=== PATIENT | female | born 1995 | race African-American/Black ===

== ENCOUNTER 2016-09-21 20:42 | Outpatient (CLI) | payer MEDICAID ==
[2016-09-21 21:23] LABS: APPEARANCE,URINE SLIGHTLY-CLOUDY; BILIRUBIN,URINE NEGATIVE (NEGATIVE); GLUCOSE, URINE NEGATIVE (NEGATIVE); KETONES,URINE NEGATIVE (NEGATIVE); LEUKOCYTE ESTERASE,URINE TRACE (NEGATIVE); NITRITE,URINE NEGATIVE (NEGATIVE); PROTEIN,URINE NEGATIVE (NEGATIVE); URINE SPECIFIC GRAVITY 1.014; UROBILINOGEN,URINE NEGATIVE mg/dL (<2.0)
[2016-09-21 21:43] LABS: URINE BARBITURATES SCREEN NEGATIVE; URINE METHADONE SCREEN NEGATIVE; URINE OPIATES LOW NEGATIVE; URINE PHENCYCLIDINE SCREEN NEGATIVE
[2016-09-21] MEDS ORDERED: HYDROXYZINE PAMOATE 50 MG CAPSULE ONE (21:47)
[2016-09-21] MEDS ORDERED: HYDROXYZINE PAMOATE 50 MG CAPSULE PO ONE (22:00)
== END 2016-09-21 22:07 | disposition home or self-care (01) ==
LOC: LC 20:42
PROVIDERS: ATTEND Obstetrics & Gynecology
DX: O47.1 False labor at or after 37 completed weeks of gestation (principal); Z3A.39 39 weeks gestation of pregnancy
CPT/HCPCS: 59025; 81005; 80307; J3490

== ENCOUNTER 2016-09-22 20:09 | Inpatient (IN) | payer MEDICAID ==
[2016-09-22 20:52] LABS: APPEARANCE,URINE SLIGHTLY-CLOUDY; BILIRUBIN,URINE NEGATIVE (NEGATIVE); GLUCOSE, URINE NEGATIVE (NEGATIVE); KETONES,URINE NEGATIVE (NEGATIVE); LEUKOCYTE ESTERASE,URINE LARGE (NEGATIVE); NITRITE,URINE NEGATIVE (NEGATIVE); PROTEIN,URINE NEGATIVE (NEGATIVE); URINE SPECIFIC GRAVITY 1.002; UROBILINOGEN,URINE NEGATIVE mg/dL (<2.0)
[2016-09-22 21:07] LABS: URINE BARBITURATES SCREEN NEGATIVE; URINE METHADONE SCREEN NEGATIVE; URINE OPIATES LOW NEGATIVE; URINE PHENCYCLIDINE SCREEN NEGATIVE
[2016-09-22] MEDS ORDERED: PENICILLIN G-K 5 MILLION UNIT VIAL ONE (23:31)
[2016-09-22] MEDS ORDERED: RINGERS SOLUTION,LACTATED 1,000 ML IV PRN (23:44)
[2016-09-22] MEDS ORDERED: PENICILLIN G POTASSIUM 5,000,000 UNIT in DEXTROSE 5%-WATER 100 ML IV ONE (23:47)
[2016-09-23] MEDS ORDERED: RINGERS SOLUTION,LACTATED 1,000 ML IV PRN (01:58)
[2016-09-23 02:26] LABS: ABSOLUTE BASOPHILS # (AUTO) 0.1 10^3/uL (0.0-0.2); ABSOLUTE EOSINOPHILS # (AUTO) 0.1 10^3/uL (0.0-0.6); ABSOLUTE LYMPHOCYTES (AUTO) 1.6 10^3/uL (0.5-4.7); ABSOLUTE MONOCYTES (AUTO) 0.7 10^3/uL (0.1-1.4); BASOPHILS % (AUTO) 0.8 % (0-2); EOSINOPHILS % (AUTO) 0.4 % (0-6); HEMATOCRIT 37.4 % (36.0-47.0); HEMOGLOBIN 11.9 g/dL (12.0-15.5); HGB HCT DIFFERENCE -1.7; LYMPHOCYTES % (AUTO) 12.8 % (13-45); MEAN CORPUSCULAR HGB CONC 31.8 g/dL (32.0-36.0); MEAN CORPUSCULAR VOLUME 72 fl (80-97); MONOCYTES % (AUTO) 5.5 % (3-13); RED BLOOD COUNT 5.18 10^6/uL (3.72-5.28); SEGMENTED NEUTROPHILS % (AUTO) 80.5 % (42-78); WHITE BLOOD COUNT 12.4 10^3/uL (4.0-10.5)
[2016-09-23] MEDS ORDERED: PENICILLIN G-K 5 MILLION UNIT VIAL IV PRN (02:39)
[2016-09-23] MEDS ORDERED: PENICILLIN G-K 5 MILLION UNIT VIAL ONE ×2 (03:54→08:00)
[2016-09-23] MEDS ORDERED: PENICILLIN G POTASSIUM 2,500,000 UNIT in DEXTROSE 5%-WATER 50 ML IV SCH (04:00)
[2016-09-23] MEDS ORDERED: OXYTOCIN/NORMAL SALINE 1,000 ML IV PRN ×2 (05:00→10:49)
[2016-09-23] MEDS ORDERED: OXYTOCIN/NORMAL SALINE 20 UNIT/1,000 ML RTUINJ ONE ×2 (05:04→09:50)
[2016-09-23] MEDS ORDERED: RINGERS SOLUTION,LACTATED 300 ML IV ONE (06:05)
[2016-09-23] MEDS ORDERED: FENTANYL/BUPIVACAINE/NS/PF 200 MCG/100 ML RTUINJ EPI ONE (06:21)
[2016-09-23] MEDS ORDERED: BUPIVACAINE HCL 0.25 % INJ/PF (2.5 MG/1 ML) 30 ML VIAL ONE (06:21)
[2016-09-23] MEDS ORDERED: EPHEDRINE SULFATE INJ 50 MG/1 ML AMPULE ONE (06:21)
--- NOTE | 2016-09-23 08:01 | L&D Flow Sheet ---
LD Flowsheet Datetime Report Generated by CPN: 09/23/2016 08:00 Datetime: 09/23/2016 07:44 NBP Sys/Lakisha/Mean (mmHg): 114 (QS system process) : 59 (QS system process) : 81 (QS system process) Pulse: 85 (QS system process) LaborFlag: Labor (QS system process) Datetime: 09/23/2016 07:31 Pitocin (milliunit): Pitocin Increased to (milliunits) @ 4 (Dora Broman, RN) Patient Position/Activity: Right Lateral; Peanut Ball (Dora Broman, RN) Datetime: 09/23/2016 07:30 Monitor Mode: Internal (Dora Broman, RN) Frequency (min): 3-4 (Dora Broman, RN) Quality: Mild/Moderate (Dora Broman, RN) Duration (sec): 90-120 (Dora Broman, RN) Pattern: Normal: <= 5 Contractions in 10 Minutes (Dora Broman, RN) Resting Tone (Palpate): Relaxed (Dora Broman, RN) Resting Tone IUP (mmHg): 20 (Dora Broman, RN) Contraction Comments: MVU = 150 (Dora Broman, RN) Monitor Mode: Internal Scalp Electrode (Dora Broman, RN) FHR Baseline Rate : 135 (Dora Broman, RN) Variability: Moderate 6-25 bpm (Dora Broman, RN) Accelerations: None (Dora Broman, RN) Decelerations: Early (Dora Broman, RN) Pitocin (milliunit): Pitocin Remains (milliunits) @ 2 (Dora Broman, RN) Datetime: 09/23/2016 07:29 NBP Sys/Lakisha/Mean (mmHg): 117 (QS system process) : 62 (QS system process) : 84 (QS system process) Pulse: 85 (QS system process) LaborFlag: Labor (QS system process) Datetime: 09/23/2016 07:20 Contraction Comments: MVU = 145 (Dora Broman, RN) Datetime: 09/23/2016 07:16 Level of Consciousness: Fully Conscious (Dora Broman, RN) DTR's/Clonus: DTRs 2+; No Clonus (Dora Broman, RN) Headache: Denies (Dora Broman, RN) Breath Sounds, Left: Clear and Equal (Dora Broman, RN) Breath Sounds, Right: Clear and Equal (Dora Broman, RN) Nausea/Vomiting: Denies (Dora Broman, RN) RUQ Epigastric Pain: Denies (Dora Broman, RN) Pitocin (milliunit): Pitocin Remains (milliunits) @ (Annotations: 2) (Dora Broman, RN) Datetime: 09/23/2016 07:15 Monitor Mode: Internal (Dora Broman, RN) Frequency (min): 3-4 (Dora Broman, RN) Quality: Mild/Moderate (Dora Broman, RN) Duration (sec): 90-120 (Dora Broman, RN) Pattern: Normal: <= 5 Contractions in 10 Minutes (Dora Broman, RN) Resting Tone (Palpate): Relaxed (Dora Broman, RN) Resting Tone IUP (mmHg): 20 (Dora Broman, RN) Monitor Mode: Internal Scalp Electrode (Dora Broman, RN) Variability: Moderate 6-25 bpm (Dora Broman, RN) Accelerations: 15X15 (Dora Broman, RN) Decelerations: Early (Dora Broman, RN) Comments: unable to determine baseline (Dora Broman, RN) Pitocin (milliunit): Pitocin Remains (milliunits) @ 2 (Dora Broman, RN) Datetime: 09/23/2016 07:14 NBP Sys/Lakisha/Mean (mmHg): 114 (QS system process) : 69 (QS system process) : 85 (QS system process) Pulse: 102 (QS system process) LaborFlag: Labor (QS system process) Datetime: 09/23/2016 07:10 Communication Comments: report to oncoming shift, care relinquished to RN Harrison and RN Dora Schroeder (Liliam Ballard RN) Datetime: 09/23/2016 07:08 Dilatation (cm): 4.0 (Liliam Ballard RN) Effacement (%): 100 (Liliam Ballard RN) Station: -1 (Liliam Ballard RN) Exam by: LOIDA Ballard (Liliam Ballard RN) Vaginal Exam Comments: unchanged (Liliam Ballard RN) I/O Interventions: Duarte Cath Inserted (Liliam Ballard RN) Datetime: 09/23/2016 07:00 Monitor Mode: Internal; Palpation (Liliam Ballard, RN) Frequency (min): 2-6 (Liliam Ballard, RN) Duration (sec): 70-90 (Liliam Nellie, RN) Resting Tone IUP (mmHg): 10 (Liliam Ballard, RN) Contraction Comments: intensity: 25-60 (Liliam Nellie, RN) Contraction Comments: qlw=[id number] (Liliam Nellie, RN) Monitor Mode: Internal Scalp Electrode (Liliam Nellie, RN) FHR Baseline Rate : 140 (Liliam Nellie, RN) Variability: Minimal - Undetectable to <=5 bpm (Liliam Sharisajan, RN) Decelerations: Variable (Liliam Sharisajan, RN) Pitocin (milliunit): Pitocin Remains (milliunits) @ (Annotations: 2) (Liliam Nellie, ) Datetime: 09/23/2016 06:57 NBP Sys/Lakisha/Mean (mmHg): 112 (QS system process) : 67 (QS system process) : 83 (QS system process) Pulse: 115 (QS system process) Respirations: 16 (Liliam Ballard RN) LaborFlag: Labor (QS system process) Datetime: 09/23/2016 06:54 NBP Sys/Lakisha/Mean (mmHg): 120 (QS system process) : 66 (QS system process) : 87 (QS system process) Pulse: 102 (QS system process) LaborFlag: Labor (QS system process) Datetime: 09/23/2016 06:50 Pain Scale: 3 (Liliam Ballard RN) Pain Presence: Intermittent (Liliam Ballard RN) Pain Type: Contraction (Liliam Ballard RN) Pain Location: Abdomen (Liliam Ballard RN) Pain Relief Measures: Epidural Given (Liliam Ballard RN) LaborFlag: Labor (QS system process) Datetime: 09/23/2016 06:49 Temperature (F): 97.8 (Liliam Ballard RN) Temperature (C): 36.6 (QS system process) LaborFlag: Labor (QS system process) Datetime: 09/23/2016 06:47 NBP Sys/Lakisha/Mean (mmHg): 115 (QS system process) : 67 (QS system process) : 85 (QS system process) Pulse: 120 (QS system process) LaborFlag: Labor (QS system process) Datetime: 09/23/2016 06:46 NBP Sys/Lakisha/Mean (mmHg): 112 (QS system process) : 66 (QS system process) : 81 (QS system process) Pulse: 129 (QS system process) Epidural Procedure Other: Pump Started (Liliam Ballard RN) LaborFlag: Labor (QS system process) Datetime: 09/23/2016 06:45 NBP Sys/Lakisha/Mean (mmHg): 128 (QS system process) : 79 (QS system process) : 96 (QS system process) Pulse: 112 (QS system process) Monitor Mode: Internal; Palpation (Liliam Ballard RN) Frequency (min): 3-5 (Liliam Ballard RN) Duration (sec): 60-90 (Liliam Ballard RN) Resting Tone IUP (mmHg): 15 (Liliam Ballard RN) Contraction Comments: intensity: 40-65 (Liliam Ballard RN) Monitor Mode: Internal Scalp Electrode (Liliam Ballard RN) FHR Baseline Rate : 135 (Liliam Ballard RN) Variability: Moderate 6-25 bpm (Liliam Ballard RN) Decelerations: Early; Variable (Liliam Ballard RN) Pitocin (milliunit): Pitocin Remains (milliunits) @ (Annotations: 2) (Liliam Ballard RN) Patient Position/Activity: Right Tilt (Liliam Ballard RN) LaborFlag: Labor (QS system process) Datetime: 09/23/2016 06:44 NBP Sys/Lakisha/Mean (mmHg): 138 (QS system process) : 80 (QS system process) : 103 (QS system process) Pulse: 134 (QS system process) Pulse: 129 (QS system process) SpO2 (%): 99 (QS system process) LaborFlag: Labor (QS system process) Datetime: 09/23/2016 06:43 NBP Sys/Lakisha/Mean (mmHg): 141 (QS system process) : 84 (QS system process) : 104 (QS system process) Pulse: 116 (QS system process) LaborFlag: Labor (QS system process) Datetime: 09/23/2016 06:42 NBP Sys/Lakisha/Mean (mmHg): 146 (QS system process) : 86 (QS system process) : 109 (QS system process) Pulse: 114 (QS system process) Epidural Procedure: Loading Dose (Liliam Kossmann, RN) LaborFlag: Labor (QS system process) Datetime: 09/23/2016 06:41 NBP Sys/Lakisha/Mean (mmHg): 143 (QS system process) : 85 (QS system process) : 106 (QS system process) Pulse: 133 (QS system process) LaborFlag: Labor (QS system process) Datetime: 09/23/2016 06:40 NBP Sys/Lakisha/Mean (mmHg): 139 (QS system process) : 85 (QS system process) : 108 (QS system process) Pulse: 101 (QS system process) Epidural Procedure: Test Dose (Liliam Ballard RN) LaborFlag: Labor (QS system process) Datetime: 09/23/2016 06:39 Pulse: 102 (QS system process) SpO2 (%): 99 (QS system process) Epidural Procedure: Cath Placed (Liliam Ballard RN) LaborFlag: Labor (QS system process) Datetime: 09/23/2016 06:34 Pulse: 104 (QS system process) SpO2 (%): 100 (QS system process) LaborFlag: Labor (QS system process) Datetime: 09/23/2016 06:30 Monitor Mode: Internal; Palpation (Liliam Ballard RN) Frequency (min): 3-5 (Liliam Ballard RN) Duration (sec): 60-90 (Liliam Ballard RN) Resting Tone IUP (mmHg): 15 (Liilam Ballard RN) Contraction Comments: uwp=024 (Liliam Ballard RN) Contraction Comments: intensity:45-75 (Liliam Ballard RN) Monitor Mode: Internal Scalp Electrode (Liliam Ballard RN) FHR Baseline Rate : 135 (Liliam Ballard RN) Accelerations: 15X15 (Liliam Ballard RN) Decelerations: Early; Variable (Liliam Ballard RN) Pitocin (milliunit): Pitocin Remains (milliunits) @ (Annotations: 2) (Liliam Ballard RN) Datetime: 09/23/2016 06:29 Pulse: 107 (QS system process) SpO2 (%): 98 (QS system process) LaborFlag: Labor (QS system process) Datetime: 09/23/2016 06:26 Procedure Type: epidural (Liliam Ballard RN) Procedure Verify: Correct Patient Identity; Correct Side and Site are Marked; Accurate Procedure Consent Form; Agreement on Procedure to be Done; Correct Patient Position (Liliam Ballard RN) Anesthesia Plans: Epidural (Liliam Ballard RN) Epidural Positioning: Sitting (Liliam Ballard RN) Anesthesia Comments: Dr. Weeks at bedside for epidural (Liliam Mccarthymunir, RN) Datetime: 09/23/2016 06:24 Pulse: 91 (QS system process) SpO2 (%): 100 (QS system process) LaborFlag: Labor (QS system process) Datetime: 09/23/2016 06:20 Anesthesia Comments: Dr. Estrella aware of epidural request (Liliam Abreusajan, RN) Datetime: 09/23/2016 06:17 IV/Blood Work: IV Infusing per Order; New IV Bag Hung; IV Bag Number @ 2 (Liliam Ballard RN) Datetime: 09/23/2016 06:15 Monitor Mode: Internal; Palpation (Liliam Ballard RN) Frequency (min): 3-6 (Liliam Ballard RN) Duration (sec): 70-100 (Liliam Ballard RN) Contraction Comments: intensity: 55-75 (Liliam Ballard RN) Monitor Mode: Internal Scalp Electrode (Liliam Ballard, LOIDA) FHR Baseline Rate : 135 (Liliam Ballard, LOIDA) Variability: Moderate 6-25 bpm (Liliam Ballard RN) Decelerations: Early; Variable (Liliam Ballard RN) Pitocin (milliunit): Pitocin Remains (milliunits) @ (Annotations: 2) (Liliam Ballard RN) Datetime: 09/23/2016 06:11 NBP Sys/Lakisha/Mean (mmHg): 127 (QS system process) : 68 (QS system process) : 91 (QS system process) Pulse: 85 (QS system process) LaborFlag: Labor (QS system process) Datetime: 09/23/2016 06:10 Contraction Comments: dxo=246 (Liliam Ballard RN) Datetime: 09/23/2016 06:01 Pain Scale: 5 (Liliam Ballard RN) Pain Presence: Intermittent (Liliam Ballard RN) Pain Type: Contraction (Liliam Ballard RN) Pain Location: Abdomen (Liliam Ballard RN) Pain Relief Measures: Epidural Given (Liliam Ballard RN) LaborFlag: Labor (QS system process) Datetime: 09/23/2016 06:00 Monitor Mode: Internal; Palpation (Liliam Abreuann, RN) Frequency (min): 3-6 (Liliam Shariann, RN) Duration (sec): 70-90 (Liliam Shariann, RN) Resting Tone (Palpate): Relaxed (Liliam Shariann, RN) Resting Tone IUP (mmHg): 10 (Liliam Shariann, RN) Contraction Comments: intensity: 50-75 (Liliam Shariann, RN) Monitor Mode: Internal Scalp Electrode ([facility], [facility]) FHR Baseline Rate : 135 (Liliam Shariann, RN) Variability: Moderate 6-25 bpm (Liliam Shariann, RN) Decelerations: Early (Liliam Shariann, RN) Pitocin (milliunit): Pitocin Remains (milliunits) @ (Annotations: 2) (Liliam Sharisajan, ) Datetime: 09/23/2016 05:57 NBP Sys/Lakisha/Mean (mmHg): 130 (QS system process) : 72 (QS system process) : 95 (QS system process) Pulse: 88 (QS system process) LaborFlag: Labor (QS system process) Datetime: 09/23/2016 05:51 Comments: new fse pad applied (Liliam Ballard RN) IV/Blood Work: IV Bolus Started; IV Bolus Given ml @ 1000 (Liliam Ballard RN) Anesthesia Comments: requested epidural, ivf bolus started (Liliam Ballard RN) Datetime: 09/23/2016 05:45 Monitor Mode: Internal; Palpation (Liliam Ballard RN) Frequency (min): 4-5 (Liliam Ballard RN) Duration (sec): 60-90 (Liliam Ballard RN) Resting Tone (Palpate): Relaxed (Liliam Ballard RN) Resting Tone IUP (mmHg): 15 (Liliam Ballard RN) Contraction Comments: intensity: 45-55 (Liliam Ballard RN) Monitor Mode: Internal Scalp Electrode (Liliam Ballard RN) FHR Baseline Rate : 135 (Liliam Ballard RN) Variability: Moderate 6-25 bpm (Liliam Ballard RN) Accelerations: 15X15 (Liliam Ballard RN) Decelerations: Early (Liliam Ballard RN) Comments: artifact present, fse lead adjusted (Liliam Ballard RN) Pitocin (milliunit): Pitocin Started (milliunits) @; Pitocin 20 Units in 1000ml NS (Annotations: 2 ) (Liliam Ballard, RN) Datetime: 09/23/2016 05:42 Patient Position/Activity: Right Lateral; Semi-Fowlers (Nalini Burris, RN) Datetime: 09/23/2016 05:41 NBP Sys/Lakisha/Mean (mmHg): 140 (QS system process) : 83 (QS system process) : 104 (QS system process) Pulse: 93 (QS system process) LaborFlag: Labor (QS system process) Datetime: 09/23/2016 05:40 Contraction Comments: mvu:110 (Liliam Sharimunir, RN) Datetime: 09/23/2016 05:30 Monitor Mode: Internal; Palpation (Liliam Sharismann, RN) Frequency (min): 3-5 (Liliam Sharismann, RN) Duration (sec): 60-90 (Liliam Kossmann, RN) Resting Tone (Palpate): Relaxed (Liliam Kossmann, RN) Resting Tone IUP (mmHg): 15 (Liliam Kossmann, RN) Monitor Mode: External US (Liliam Kossmann, RN) FHR Baseline Rate : 135 (Liliam Kossmann, RN) Variability: Moderate 6-25 bpm (Liliam Kossmann, RN) Accelerations: 15X15 (Liliam Kossmann, RN) Decelerations: Early (Liliam Kossmann, RN) Datetime: 09/23/2016 05:26 NBP Sys/Lakisha/Mean (mmHg): 137 (QS system process) : 90 (QS system process) : 106 (QS system process) Pulse: 98 (QS system process) LaborFlag: Labor (QS system process) Datetime: 09/23/2016 05:20 Contraction Comments: mvu: 80 (Liliam Ballard RN) Datetime: 09/23/2016 05:15 Monitor Mode: Internal; Palpation (Liliam Ballard RN) Frequency (min): 2-5 (Liliam Ballard, LOIDA) Duration (sec): 50-90 (Liliam Ballard, RN) Resting Tone IUP (mmHg): 15 (Liliam Ballard, RN) Contraction Comments: intensity: 25-50 (Liliam Ballard, LOIDA) Monitor Mode: Internal Scalp Electrode (Liliam Ballard RN) FHR Baseline Rate : 135 (Liliam Ballard, RN) Variability: Moderate 6-25 bpm (Liliam Ballard, RN) Accelerations: 15X15 (Liliam Ballard, RN) Decelerations: None (Liliam Ballard, RN) Datetime: 09/23/2016 05:12 NBP Sys/Lakisha/Mean (mmHg): 138 (QS system process) : 84 (QS system process) : 105 (QS system process) Pulse: 97 (QS system process) LaborFlag: Labor (QS system process) Datetime: 09/23/2016 05:00 Monitor Mode: Internal; Palpation (Liliam Ballard RN) Frequency (min): 4-5 (Liliam Ballard RN) Duration (sec): 60-90 (Liliam Ballard, RN) Resting Tone IUP (mmHg): 15 (Liliam Ballard, RN) Contraction Comments: intensity:35-50; mvu: 80 (Liliam Ballard, RN) Monitor Mode: Internal Scalp Electrode (Liliam Ballard RN) FHR Baseline Rate : 150 (Liliam Ballard, RN) Variability: Moderate 6-25 bpm (Liliam Ballard, RN) Accelerations: 15X15 (Liliam Ballard, RN) Decelerations: Early; Variable (Lilima Ballard, RN) Datetime: 09/23/2016 04:56 NBP Sys/Lakisha/Mean (mmHg): 139 (QS system process) : 86 (QS system process) : 107 (QS system process) Pulse: 94 (QS system process) LaborFlag: Labor (QS system process) Datetime: 09/23/2016 04:45 Monitor Mode: Internal; Palpation (Liliam Ballard RN) Frequency (min): 5-6 (Liliam Ballard RN) Duration (sec): 60-90 (Liliam Ballard RN) Resting Tone (Palpate): Relaxed (Liliam Ballard RN) Resting Tone IUP (mmHg): 15 (Liliam Ballard RN) Contraction Comments: intensity:45-50 (Liliam Ballard RN) Monitor Mode: External US (Liliam Ballard RN) FHR Baseline Rate : 140 (Liliam Ballard RN) Variability: Moderate 6-25 bpm (Liliam Kossmann, RN) Accelerations: 10X10 (Liliam Kossmann, RN) Decelerations: Early; Variable (Liliam Sharismann, RN) Datetime: 09/23/2016 04:41 NBP Sys/Lakisha/Mean (mmHg): 138 (QS system process) : 79 (QS system process) : 102 (QS system process) Pulse: 100 (QS system process) LaborFlag: Labor (QS system process) Datetime: 09/23/2016 04:40 Contraction Comments: mvu=80 (Liliam Sharismann, RN) Datetime: 09/23/2016 04:39 Patient Position/Activity: High Fowlers (Liliam Sharismann, RN) Datetime: 09/23/2016 04:30 Monitor Mode: Internal; Palpation (Liliam Kossmann, RN) Frequency (min): 5-7 (Liliam Kossmann, RN) Duration (sec): 50-110 (Liliam Kossmann, RN) Resting Tone IUP (mmHg): 15 (Liliam Kossmann, RN) Contraction Comments: intensity: 45-60 (Liliam Kossmann, RN) Monitor Mode: Internal Scalp Electrode (Liliam Kossmann, RN) FHR Baseline Rate : 140 (Liliam Kossmann, RN) Variability: Moderate 6-25 bpm (Liliam Kossmann, RN) Accelerations: 15X15 (Liliam Kossmann, RN) Decelerations: Variable (Liliam Kossmann, RN) Datetime: 09/23/2016 04:27 NBP Sys/Lakisha/Mean (mmHg): 137 (QS system process) : 85 (QS system process) : 106 (QS system process) Pulse: 105 (QS system process) Respirations: 16 (Liliam Ballard RN) Temperature (F): 97.8 (Liliam Ballard RN) Temperature (C): 36.6 (QS system process) Temperature Route: Oral (Liliam Ballard RN) Pain Scale: 5 (Liliam Ballard RN) Pain Presence: Intermittent (Liliam Ballard RN) Pain Type: Contraction (Liliam Ballard RN) Pain Location: Abdomen (Liliam Ballard RN) Pain Relief Measures: Comfort Measures (Liliam Ballard RN) Pain Coping: Talking Through Contractions; Breathing Through Contractions; Declines Medication or Epidural (Liliam Ballard RN) LaborFlag: Labor (QS system process) Datetime: 09/23/2016 04:19 Monitor Interventions for UA: IUPC Inserted (Liliam Ballard RN) Datetime: 09/23/2016 04:17 Monitor Interventions for FHR: FSE Applied (Liliam Ballard RN) Dilatation (cm): 4.0 (Liliam Ballard RN) Effacement (%): 100 (Liliam Ballard RN) Station: -1 (Liliam Ballard RN) Membrane Status: Ruptured (Liliam Ballard RN) Membranes Ruptured Date/Time: 09/23/2016 04:17 (Liliam Ballard RN) Membranes Rupture Method: Artificial (Liliam Ballard RN) Amniotic Fluid Color: Clear (Lilima Ballard RN) Amniotic Fluid Amount: Scant (Liliam Ballard RN) Amniotic Fluid Odor: Normal (Liliam Ballard RN) Vaginal Bleeding: Normal Show (Liliam Ballard RN) Vaginal Exam Comments: prominent pubic arch (Liliam Ballard RN) Dilatation (cm): 3-4 cms (Liliam Ballard RN) Effacement: >80_ effaced (Liliam Ballard RN) Station: minus 1 to 0 (Liliam Ballard RN) Consistency: Soft (Liliam Ballard RN) Position: Midposition (Liliam Ballard RN) Total Medina's Score: 10 (QS system process) : 9-14 = Usually no failure for induction (QS system process) Datetime: 09/23/2016 04:13 Communication Comments: Dr. Ljuan at bedside, discussing POC with patient. Plans to perform AROM, IUPC, and FSE. (Liliam Ballard RN) Datetime: 09/23/2016 04:11 NBP Sys/Lakisha/Mean (mmHg): 121 (QS system process) : 67 (QS system process) : 88 (QS system process) Pulse: 101 (QS system process) LaborFlag: Labor (QS system process) Datetime: 09/23/2016 04:02 Communication Comments: DrSana Lujan aware of decelerations. MD in route for FSE placement. (Liliam Ballard, RN) Datetime: 09/23/2016 04:01 Monitor Mode: External; Palpation (Liliam Abreuann, RN) Frequency (min): irregular with uterine irritability (Liliam Kossmann, RN) Quality: Mild (Liliam Sharismann, RN) Duration (sec): 30-50 (Liliam Sharismann, RN) Resting Tone (Palpate): Relaxed (Liliam Mccarthysmann, RN) Monitor Mode: External US (Liliam Ballard, RN) FHR Baseline Rate : 140 (Liliam Ballard, RN) Variability: Moderate 6-25 bpm (Liliam Sharismann, RN) Accelerations: 15X15 (Liliam Sharismann, RN) Decelerations: Late; Variable (Liliam Kossmann, RN) Datetime: 09/23/2016 03:58 Antibiotics: Penicillin IV (Units) @ (Annotations: 2.5 million units ) (Liliam Abreusajan, RN) Datetime: 09/23/2016 03:56 NBP Sys/Lakisha/Mean (mmHg): 116 (QS system process) : 63 (QS system process) : 84 (QS system process) Pulse: 90 (QS system process) LaborFlag: Labor (QS system process) Datetime: 09/23/2016 03:53 Monitor Interventions for UA: [place] Adjusted (Liliam Ballard RN) Monitor Interventions for FHR: Ultrasound Adjusted (Liliam Ballard RN) Patient Position/Activity: Right Lateral (Liliam Ballard RN) Datetime: 09/23/2016 03:41 NBP Sys/Lakisha/Mean (mmHg): 128 (QS system process) : 74 (QS system process) : 93 (QS system process) Pulse: 85 (QS system process) LaborFlag: Labor (QS system process) Datetime: 09/23/2016 03:30 Monitor Mode: External; Palpation (Liliam Kossmann, RN) Frequency (min): uterine irritability (Liliam Kossmann, RN) Resting Tone (Palpate): Relaxed (Liliam Kossmann, RN) Monitor Mode: External US (Liliam Kossmann, RN) FHR Baseline Rate : 135 (Liliam Kossmann, RN) Variability: Moderate 6-25 bpm (Liliam Kossmann, RN) Accelerations: 15X15 (Liliam Kossmann, RN) Decelerations: Variable; Prolonged (Liliam Kossmann, RN) Datetime: 09/23/2016 03:26 NBP Sys/Lakisha/Mean (mmHg): 130 (QS system process) : 73 (QS system process) : 94 (QS system process) Pulse: 101 (QS system process) Respirations: 18 (Liliam Kossmann, RN) LaborFlag: Labor (QS system process) Datetime: 09/23/2016 03:25 Monitor Interventions for UA: Point [place] Adjusted (Liliamkavya Ballard, RN) Resting Tone (Palpate): Relaxed (Liliamkavya Ballard, RN) Monitor Interventions for FHR: Ultrasound Adjusted (Liliam Ballard, RN) Datetime: 09/23/2016 03:17 I/O Interventions: Up to BR (Liliam Ballard, RN) Datetime: 09/23/2016 03:11 NBP Sys/Laiksha/Mean (mmHg): 123 (QS system process) : 85 (QS system process) : 96 (QS system process) Pulse: 98 (QS system process) LaborFlag: Labor (QS system process) Datetime: 09/23/2016 03:01 Monitor Mode: External; Palpation (Liliam Sharismann, RN) Frequency (min): uterine irritability (Liliam Kossmann, RN) Quality: Mild (Liliam Kossmann, RN) Resting Tone (Palpate): Relaxed (Liliam Kossmann, RN) Monitor Mode: External US (Liliam Kossmann, RN) FHR Baseline Rate : 135 (Liliam Kossmann, RN) Variability: Moderate 6-25 bpm (Liliam Kossmann, RN) Accelerations: 15X15 (Liliam Kossmann, RN) Decelerations: Variable (Liliam Kossmann, RN) Datetime: 09/23/2016 02:57 Patient Position/Activity: Left Lateral (Liliam Sharismann, RN) Patient Care Comments: patient found to be flat on her back and had removed the hip roll. explained importance of roll again (Liliam Sharismann, RN) Datetime: 09/23/2016 02:56 NBP Sys/Lakisha/Mean (mmHg): 119 (QS system process) : 74 (QS system process) : 92 (QS system process) Pulse: 101 (QS system process) LaborFlag: Labor (QS system process) Datetime: 09/23/2016 02:49 Monitor Interventions for UA: [place] Adjusted (Liliam Kossmann, RN) Monitor Interventions for FHR: Ultrasound Adjusted (Liliam Kossmann, RN) Datetime: 09/23/2016 02:42 Patient Position/Activity: Right Lateral (Liliam Kossmann, RN) Datetime: 09/23/2016 02:41 NB Sys/Lakisha/Mean (mmHg): 113 (QS system process) : 68 (QS system process) : 86 (QS system process) Pulse: 97 (QS system process) LaborFlag: Labor (QS system process) Datetime: 09/23/2016 02:35 Instructional Method: Verbal; Patient Instructed; Family/Support Person Instructed; Verbalized Understanding (Liliam Ballard RN) Plan of Care: Plan of Care Discussed; Vaginal Delivery; Labor (Liliam Ballard RN) Unit Routine: [place] to Room; Call Arndt; Bed; Infant Security; Consents Signed; Handwashing; Monitoring; Medications (Liliam Ballard RN) Labor/Induction: Labor Stages; Artificial Rupture of Membranes; Interventions (Liliam Ballard RN) Pain Management: IV Narcotics; PRN Medications; Pain Scale/Goals; Comfort Measures (Liliam Ballard RN) Medications: Antibiotics (Liliam Ballard RN) Datetime: 09/23/2016 02:31 Procedures: new peripad applied, patient aware to notify rn if bleeding persists (Liliam Kossmann, RN) Datetime: 09/23/2016 02:30 Monitor Mode: External; Palpation (Liliam Sharismann, RN) Frequency (min): uterine irritability (Liliam Kossmann, RN) Resting Tone (Palpate): Relaxed (Liliam Kossmann, RN) Monitor Mode: External US (Liliam Kossmann, RN) FHR Baseline Rate : 135 (Liliam Kossmann, RN) Variability: Moderate 6-25 bpm (Liliam Kossmann, RN) Accelerations: 15X15 (Liliam Kossmann, RN) Decelerations: None (Liliam Kossmann, RN) Datetime: 09/23/2016 02:27 NBP Sys/Lakisha/Mean (mmHg): 123 (QS system process) : 82 (QS system process) : 98 (QS system process) Pulse: 98 (QS system process) Respirations: 16 (Liliam Ballard RN) Temperature (F): 98.0 (Liliam Ballard RN) Temperature (C): 36.7 (QS system process) Temperature Route: Oral (Liliam Ballard RN) Pain Scale: 5 (Liliam Ballard RN) Pain Presence: Intermittent (Liliam Ballard RN) Pain Type: Contraction (Liliam Ballard RN) Pain Location: Abdomen; Back (Liliam Ballard RN) Pain Relief Measures: Comfort Measures (Annotations: refused iv pain meds) (Liliam Ballard RN) LaborFlag: Labor (QS system process) Datetime: 09/23/2016 02:15 Monitor Mode: External; Palpation (Liliam Ballard RN) Frequency (min): irregular (Liliam Ballard RN) Quality: Mild (Liliam Ballard RN) Duration (sec): 30-50 (Liliam Ballard RN) Resting Tone (Palpate): Relaxed (Liliam Ballard RN) Monitor Mode: External US (Liliam Ballard RN) FHR Baseline Rate : 140 (Liliam Ballard RN) Variability: Moderate 6-25 bpm (Liliam Ballard RN) Accelerations: 15X15 (Liliam Ballard RN) Decelerations: None (Liliam Ballard RN) Datetime: 09/23/2016 02:02 IV/Blood Work: IV Started (Jacqui Sr RN) Patient Care Comments: 18 G Left hand (Jacqui Sr RN) Datetime: 09/23/2016 02:00 Monitor Mode: External; Palpation (Liliam Ballard RN) Frequency (min): 4-6 (Liliam Ballard RN) Quality: Mild (Liliam Ballard RN) Duration (sec): 50-60 (Liliam Ballard RN) Resting Tone (Palpate): Relaxed (Liliam Ballard RN) Monitor Mode: External US (Liliam Ballard RN) FHR Baseline Rate : 140 (Liliam Ballard RN) Variability: Moderate 6-25 bpm (Liliam Ballard RN) Accelerations: 15X15 (Liliam Ballard RN) Decelerations: None (Liliam Ballard RN) Level of Consciousness: Fully Conscious (Liliam Ballard RN) DTR's/Clonus: DTRs 2+; No Clonus (Liliam Ballard RN) Headache: Denies (Liliam Ballard, RN) Breath Sounds, Left: Clear and Equal (Liliam Ballard, RN) Breath Sounds, Right: Clear and Equal (Liliam Ballard, RN) Nausea/Vomiting: Denies (Liliam Ballard, RN) RUQ Epigastric Pain: Denies (Liliam Ballard, RN) Datetime: 09/23/2016 01:56 NBP Sys/Lakisha/Mean (mmHg): 128 (QS system process) : 84 (QS system process) : 103 (QS system process) Pulse: 106 (QS system process) LaborFlag: Labor (QS system process) Datetime: 09/23/2016 01:40 Procedures: peripad approximately 1/4 saturated with dark red blood, bright red blood noted on glove when sve was performed previously (Liliam Ballard RN) Datetime: 09/23/2016 01:39 Dilatation (cm): 3.5 (Jeni Jin RN) Effacement (%): 80 (Jeni Jin RN) Station: -1 (Jeni Jin RN) Exam by: Robert Jin RN (Jeni Jin RN) Vaginal Exam Comments: bloody show noted after SVE (Jeni Jin RN) Datetime: 09/23/2016 00:30 Pain Scale: 5 (Liliam Ballard RN) Pain Presence: Intermittent (Liliam Ballard RN) Pain Type: Contraction (Liliam Ballard RN) Pain Location: Abdomen (Liliam Ballard RN) Pain Relief Measures: Comfort Measures (Liliam Ballard RN) Pain Coping: Talking Through Contractions; Breathing Through Contractions; Declines Medication or Epidural (Liliam Ballard RN) Patient Position/Activity: Walking (Annotations: patient sent ambulating for a hour) (Liliam Ballard RN) LaborFlag: Labor (QS system process) Datetime: 09/23/2016 00:19 NBP Sys/Lakisha/Mean (mmHg): 128 (QS system process) : 85 (QS system process) : 100 (QS system process) Pulse: 98 (QS system process) LaborFlag: Labor (QS system process) Datetime: 09/23/2016 00:05 NBP Sys/Lakisha/Mean (mmHg): 122 (QS system process) : 71 (QS system process) : 91 (QS system process) Pulse: 87 (QS system process) LaborFlag: Labor (QS system process) Datetime: 09/23/2016 00:01 Monitor Mode: External; Palpation (Liliam Ballard RN) Frequency (min): 4-7 (Liliam Kossmann, RN) Quality: Mild (Liliam Ballard, RN) Duration (sec): 70-120 (Liliam Ballard, RN) Resting Tone (Palpate): Relaxed (Liliam Ballard, RN) Monitor Mode: External US (Liliam Ballard, RN) FHR Baseline Rate : 140 (Liliam Ballard, RN) Variability: Moderate 6-25 bpm (Liliam Ballard, RN) Accelerations: 15X15 (Liliam Ballard, RN) Decelerations: Variable (Liliam Sharismann, RN) Datetime: 09/22/2016 23:50 NBP Sys/Lakisha/Mean (mmHg): 127 (QS system process) : 72 (QS system process) : 93 (QS system process) Pulse: 111 (QS system process) LaborFlag: Labor (QS system process) Datetime: 09/22/2016 23:48 Antibiotics: Start Antibiotics; Penicillin IV (Units) @ (Annotations: [id number]) (Liliam Ballard, RN) Datetime: 09/22/2016 23:35 NBP Sys/Lakisha/Mean (mmHg): 131 (QS system process) : 78 (QS system process) : 97 (QS system process) Pulse: 93 (QS system process) LaborFlag: Labor (QS system process) Datetime: 09/22/2016 23:30 Monitor Mode: External; Palpation (Liliam Ballard, RN) Frequency (min): 3-8 (Liliam Ballard, RN) Quality: Mild (Liliam Ballard, RN) Duration (sec): 50-110 (Liliam Ballard, RN) Resting Tone (Palpate): Relaxed (Liliam Ballard, RN) Monitor Mode: External US (Liliam Ballard, RN) FHR Baseline Rate : 140 (Liliam Ballard, RN) Variability: Moderate 6-25 bpm (Liliam Ballard, RN) Accelerations: 15X15 (Liliam Ballard, RN) Decelerations: None (Liliam Ballard, RN) Datetime: 09/22/2016 23:20 NBP Sys/Lakisha/Mean (mmHg): 130 (QS system process) : 76 (QS system process) : 96 (QS system process) Pulse: 91 (QS system process) LaborFlag: Labor (QS system process) Datetime: 09/22/2016 23:10 Communication Comments: discussed poc with dr. neilsen. plan to give pcn and then ambulate and recheck in two hours (Liliam Ballard, RN) Datetime: 09/22/2016 23:05 Procedures: peripad 1/4 saturated with reddish purple blood, but blood on glove was bright red (Liliam Ballard RN) Datetime: 09/22/2016 23:03 Dilatation (cm): 3.5 (Liliam Ballard RN) Effacement (%): 80 (Liliam Ballard RN) Station: -1 (Liliam Ballard RN) Exam by: LOIDA Ballard (Liliam Ballard RN) Vaginal Exam Comments: continuing to have bloody show noted on pad and glove during sve (Liliam Ballard RN) Patient Care Comments: arrived back on unit from walking (Liliam Ballard RN) Datetime: 09/22/2016 21:56 Patient Position/Activity: Walking (Liliam Ballard RN) Datetime: 09/22/2016 21:55 Comments: sitting in high fowlers to remove monitors (Liliam Ballard RN) Communication Comments: Discussed POC. Patient to be allowed to ambulate for a hour and reevaluate (Liliam Ballard, LOIDA) Datetime: 09/22/2016 21:50 Dilatation (cm): 3.5 (Liliam Ballard, LOIDA) Effacement (%): 80 (Liliam Ballard, RN) Station: -1 (Liliam Ballard, LOIDA) Exam by: LOIDA Nellie (Liliam Ballard, LOIDA) Datetime: 09/22/2016 21:36 I/O Interventions: Up to BR (Liliam Ballard, RN) Datetime: 09/22/2016 21:30 Frequency (min): irregular (Liliam Bradyann, RN) Duration (sec): 40-100 (Liliam Ballard, RN) Monitor Mode: External US (Liliam Ballard, RN) FHR Baseline Rate : 140 (Liliam Bradyann, RN) Variability: Moderate 6-25 bpm (Liliam Bradyann, RN) Accelerations: 15X15 (Liliam Bradyann, RN) Decelerations: None (Liliam Sharismann, RN) Datetime: 09/22/2016 21:28 NBP Sys/Lakisha/Mean (mmHg): 119 (QS system process) : 70 (QS system process) : 90 (QS system process) Pulse: 87 (QS system process) LaborFlag: Labor (QS system process) Datetime: 09/22/2016 21:01 Monitor Mode: External; Palpation (Liliam Bradyann, RN) Frequency (min): irregular (Liliam Sharismann, RN) Quality: Mild (Liliam Kossmann, RN) Duration (sec): 50-80 (Liliam Kossmann, RN) Resting Tone (Palpate): Relaxed (Liliam Sharismann, RN) Monitor Mode: External US (Liliam Sharismann, RN) FHR Baseline Rate : 140 (Liliam Sharismann, RN) Variability: Moderate 6-25 bpm (Liliam Kossmann, RN) Accelerations: 15X15 (Liliam Sharismann, RN) Decelerations: None (Liliam Kossmann, RN) Datetime: 09/22/2016 20:59 NBP Sys/Lakisha/Mean (mmHg): 128 (QS system process) : 82 (QS system process) : 99 (QS system process) Pulse: 90 (QS system process) LaborFlag: Labor (QS system process) Datetime: 09/22/2016 20:47 Frequency (min): 5-10min (Liliam Ballard RN) Pain Scale: 5 (Liliam Ballard RN) Pain Presence: Intermittent (Liliam Ballard RN) Pain Type: Contraction (Liliam Ballard RN) Pain Location: Abdomen (Liliam Ballard RN) Pain Coping: Talking Through Contractions; Breathing Through Contractions (Liliam Ballard RN) Dilatation (cm): 3.5 (Liliam Ballard RN) Effacement (%): 80 (Liliam Ballard RN) Station: -1 (Liliam Ballard RN) Exam by: LOIDA Ballard (Liliam Ballard RN) Vaginal Bleeding: Normal Show (Liliam Ballard RN) Vaginal Exam Comments: patient has a prominent arch, difficult to examine (Liliam Ballard RN) Level of Consciousness: Fully Conscious (Liliam Ballard RN) DTR's/Clonus: DTRs 2+; No Clonus (Liliam Ballard RN) Headache: Denies (Liliam Ballard RN) Breath Sounds, Left: Clear and Equal (Liliam Ballard RN) Breath Sounds, Right: Clear and Equal (Liliam Ballard RN) Nausea/Vomiting: Denies (Liliam Ballard RN) RUQ Epigastric Pain: Denies (Liliam Ballard RN) LaborFlag: Labor (QS system process) Datetime: 09/22/2016 20:28 NBP Sys/Lakisha/Mean (mmHg): 125 (QS system process) : 79 (QS system process) : 96 (QS system process) Pulse: 110 (QS system process) LaborFlag: Labor (QS system process)
[2016-09-23] MEDS ORDERED: MEASLES,MUMPS&RUBELLA VACC/PF 0.5 ML VIAL SUBCUT PRN (10:49)
[2016-09-23] MEDS ORDERED: PROMETHAZINE HCL 25 MG TABLET PO PRN (10:49)
[2016-09-23] MEDS ORDERED: GLYCERIN/WITCH HAZEL LEAF 1 EACH MED..PAD TP PRN (10:49)
[2016-09-23] MEDS ORDERED: DIBUCAINE 1% OINTMENT 28 GM TP PRN (10:49)
[2016-09-23] MEDS ORDERED: PSEUDOEPHEDRINE HCL 30 MG TABLET PO PRN (10:49)
[2016-09-23] MEDS ORDERED: ACETAMINOPHEN 650 MG SUPP.RECT PR PRN (10:49)
[2016-09-23] MEDS ORDERED: PROMETHAZINE HCL 25 MG SUPP.RECT PR PRN (10:49)
[2016-09-23] MEDS ORDERED: BENZOCAINE/MENTHOL AEROSOL SPRAY 56 ML TOP PRN (10:49)
[2016-09-23] MEDS ORDERED: DIPHENHYDRAMINE HCL 25 MG CAPSULE PO PRN (10:49)
[2016-09-23] MEDS ORDERED: NA PHOS,M-B/NA PHOS,DI-BA (ADULT) 133 ML ENEMA PR PRN (10:49)
[2016-09-23] MEDS ORDERED: DIPH/PERTUSS(ACELL)/TETANUS VAC/PF 0.5 ML SYR (>=10YO) IM PRN (10:49)
[2016-09-23] MEDS ORDERED: ACETAMINOPHEN WITH CODEINE #3 TABLET PO PRN ×2 (10:49)
[2016-09-23] MEDS ORDERED: PROMETHAZINE HCL INJ 25 MG/1 ML VIAL IV PRN (10:49)
[2016-09-23] MEDS ORDERED: MAGNESIUM HYDROXIDE SUSP 30 ML UDCUP PO PRN (10:49)
[2016-09-23] MEDS ORDERED: IBUPROFEN 800 MG TABLET ONE (11:10)
--- NOTE | 2016-09-23 11:43 | Delivery Summary ---
Del Sum A-C Datetime Report Generated by CPN: 09/23/2016 11:42 ADMISSION DATA Chief Complaint: Uterine Contractions Admission Impression: Term, Intrauterine Admit Provider Comments: IUPC and fse placed to monitor more closely. GBS prophylaxis augment with pit...discussed possiblity of need for if arrest of labor or nonreassuring fhts DELIVERY PERSONNEL Delivery Doctor:: Ludmila Hernandez CNM Nurse Collar Closer Lockstitch Certified:: Dian Hernandez CNM Labor and Delivery Nurse:: Benita Harrison, motor rebuilder Nurse:: CRISTAL Faulkner Nursery Nurse:: Naomi French Rn Ems Educator/DEGREASING SOLUTION RECLAIMER: Fatou Oswald CNA II Ems Educator/DEGREASING SOLUTION RECLAIMER: Franci Sidhu CST MATERNAL INFORMATION Delivery Anesthesia: Epidural Medications After Delivery: Pitocin Bolus-Please Comment Meds After Delivery Comment: Pitocin 20 units in 1000 ml nss open for bolus Estimated Blood Loss (ml): 200 Maternal Complications: None Provider Comments: Pt. progressed to c/c/0 with decels and bradicardia. Positions changes, pitocin off and oxygen mask on. Dr. Ledesma in unit and kiwi attempted by Dr. Ledesma with 3 pop offs. FHT back to 120s-130s and + accels. Pitocin restarted and epidural turned off, patient continued pushing and after position changes and much coaching went on to deliver a viable baby girl through a loose nuchal cord, particulate meconium noted at delivery. Spontaneous respiratory effort and cry at delivery, baby placed on maternal abdomen and cord allowed to stop pulsating then clamped x2 and cut by maternal grandmother (3vc noted). Cord blood obtained for storage. Placenta delivered spontaneously intact and sent for eval. Vaginal and perineal inspection revealed laceration as stated above. Large amount of edema noted, in and out cath placed and _100ml of urine obtained. Baby and mother in room skin to skin bonding. LABOR SUMMARY EDC: 09/27/2016 00:00 No. Babies in Womb: 1 Attempted: No Labor Anesthesia: Epidural LABOR INFORMATION Reason for Induction: Not Applicable Onset of Labor: 09/23/2016 04:30 Complete Dilatation: 09/23/2016 08:33 Oxytocin: Augmentation Group B Beta Strep: positive Antibiotics # of Doses: 3 Antibiotics Time of Last Dose: 0808 Name of Antibiotic Given: Penicillin Steroids Given: None Reason Steroids Not Administered: Not Applicable MEMBRANES Membranes Rupture Method: Artificial Rupture of Membranes: 09/23/2016 04:17 Length of Rupture (hr): 5.80 Amniotic Fluid Color: Clear Amniotic Fluid Amount: Scant Amniotic Fluid Odor: Normal STAGES OF LABOR Stage 1 hr: 4 Stage 1 min: 3 Stage 2 hr: 1 Stage 2 min: 32 Stage 3 hr: 0 Stage 3 min: 5 Total Time in Labor hr: 5 Total Time in Labor min: 40 VAGINAL DELIVERY Episiotomy: None Laceration Extension: First Degree Laceration Type: Vaginal Other Laceration: bilateral vaginal wall Laceration Repair: Yes Laceration Repair Note: Vaginal wall lacerations bilaterally repaired with 2-0 chromic in the usual fashion. Poor tissue integrity with moderate amount of edema. Hemostasis achieved. Sponge Count Correct: N/A CSECTION DELIVERY Primary Indication: N/A Secondary Indication: N/A CSection Incidence: N/A Labor: N/A Elective: N/A CSection Incision: N/A BABY A INFORMATION Infant Delivery Date/Time: 09/23/2016 10:05 Method of Delivery: Vaginal Born in Route : No : N/A Forceps: N/A Vacuum Extraction: Failed Shoulder Dystocia : No PRESENTATION/POSITION BABY A Presentation: Cephalic Cephalic Presentation: Vertex Vertex Position: Right Occipital Anterior Breech Presentation: N/A PLACENTA INFORMATION BABY A Placenta Delivery Time : 09/23/2016 10:10 Placenta Method of Delivery: Spontaneous Placenta Status: Delivered SCORES BABY A Heart Rate 1 min: >100 bpm Resp Effort 1 min: Good Cry Reflex Irritability 1 min: Cough or Sneeze or Pulls Away Muscle Tone 1 min: Active Motion Color 1 min: Blue/Pale Resuscitation Effort 1 min: Tactile Stimulation SCORE 1 MIN: 8 Heart Rate 5 min: >100 bpm Resp Effort 5 min: Good Cry Reflex Irritability 5 min: Cough or Sneeze or Pulls Away Muscle Tone 5 min: Active Motion Color 5 min: Body Roff, Extremities Blue SCORE 5 MIN: 9 Resuscitation Effort 10 min: N/A INFANT INFORMATION BABY A Gestational Age at Delivery: 39.3 Gestational Status: Full Term- 39- 40.6 Weeks Infant Outcome : Liveborn Infant Condition : Stable Sex: Female IDENTIFICATION BABY A Verification Date/Time: 09/23/2016 10:22 ID Band Number: [id number] Mother's Name Verified: Yes RN Verifying Infant: Iman Camp RNC/ A Harrison RN WEIGHT/LENGTH BABY A Birthweight (gm): 2603 Weight (lb): 5 Infant Weight (oz): 12 Infant Length (in): 18.50 Infant Length (cm): 46.99 CORD INFORMATION BABY A No. Cord Vessels: 3 Nuchal Cord : Around Neck x1, Loose Cord Blood Taken: Yes-For Eval (Mom's Blood Type - or O+) Infant Suction: Mouth ASSESSMENT BABY A Complications: Extended Bradycardia; Multiple Variable Decels; Meconium Physical Findings at Delivery: Caput Succedaneum; Puncture Wound from Scalp Electrode Respirations: Appears Normal Skin to Skin: Yes Skin to Skin Time (min): 60 Maintenance Worker/ALS Called : No Care By: Naomi French RN Transferred To: Remains with Mother SIGNATURES Assignment: Kenia Ledesma MD Signature: with User ID: Antonio : with User ID: [email or web address]
--- NOTE | 2016-09-23 12:52 | Admission Physical ---
Datetime Report Generated by CPN: 09/23/2016 12:52 CURRENT ADMISSION Hx Assessment: The History has been Reviewed and is Current Chief Complaint: Uterine Contractions Admit Plan: Admit to Unit; Initiate Labor Protocol ALLERGIES Medication Allergies: No Medication Allergies: No Known Allergies (09/22/2016) Medication Allergies: No Known Allergies (09/21/2016) Medication Allergies: No Known Allergies (06/20/2013) Latex: No Latex Allergies OBSTETRICAL HISTORY EDC: 09/27/2016 00:00 EDC: 09/23/2016 00:00 : 1 Para: 0 Term: 0 : 0 SAB: 0 IAB: 0 Ectopic: 0 Livin Cesareans: 0 VBACs: 0 Multiple Births: 0 Gestational Diabetes: No Rh Sensitization: No Incompetent Cervix: No EDGAR: No Infertility: No ART Treatment: No Uterine Anomaly: No IUGR: No Hx Previous C/S: No Macrosomia: No Hx Loss/Stillborn: No PIH: No Hx : No Placenta Previa/Abruption: No Depression/PP Depression: No PTL/PROM: No Post Hemorrhage: No Current Procedures: Ultrasound Obstetrical History Comments: g1-current SEE RECORDS Alcohol: No Marijuana : No Cocaine: No Other Illicit Drugs: No Cigarettes: Never Smoker. [id number] MEDICAL HISTORY Diabetes: No Blood Transfusion: No Pulmonary Disease (Asthma, TB): No Breast Disease: No Hypertension: No Pecan Mallow Dipper Surgery: No Heart Disease: No Hosp/Surgery: Yes Autoimmune Disorder: No Anesthetic Complications: No Kidney Disease: No Abnormal Pap Smear: No Neuro/Epilepsy: No Psychiatric Disorders: No Other Medical Diseases: No Hepatitis/Liver Disease: No Significant Family History: No Varicosities/Phlebitis: No Trauma/Violence : No Thyroid Dysfunction: No Medical History Comments: R arm surgery 2004, obesity INFECTIOUS HISTORY Gonorrhea: No Genital Herpes: No Chlamydia: No Tuberculosis: No Syphilis: No Hepatitis: No HIV/AIDS Exposure: No Rash or Viral Illness: No HPV: No PHYSICAL EXAM General: Normal HEENT: Normal Neurologic: Normal Thyroid: Normal Heart: Normal Lungs: Normal Breast: Normal Back: Normal Abdomen: Normal Genitourinary Exam: Normal Extremities: Normal DTRs: Normal Pelvic Type: Adequate Physical Exam Comments: narrow pubic arch efw 7 pounds by lizandro pt with 2nd visit in 24 hr...had been closed thick and high on first visit....now with slightly more bloody show than usual gbs + Vital Signs: Reviewed VAGINAL EXAM Dilatation: 4 Effacement: 90 Station: -1 MEMBRANES Membranes: Ruptured FETUS A EGA: 39.3 Monitoring: External US Accelerations: 15X15 FHR Comments: occasional variables and a late early...difficult to monitor externally Admit Comment: IUPC and fse placed to monitor more closely. GBS prophylaxis augment with pit...discussed possiblity of need for if arrest of labor or nonreassuring fhts PLANS FOR LABOR AND DELIVERY Labor and Delivery: None Pain Management: Natural Feeding Preference: Breast Benefit of Breast Feed Discussed: Yes Circumcision: N/A INFORMED CONSENT Signature: with User ID: [email or web address]
[2016-09-23] MEDS ORDERED: INFLUENZA ADLT QUAD (36MOS+) 2016-17 VAC 0.5 ML SYR IM PRN (13:49)
[2016-09-23] MEDS: IBUPROFEN 800 MG TABLET PO SCH ×2 (14:01→21:21)
[2016-09-23] MEDS ORDERED: DOCUSATE SODIUM 100 MG CAPSULE PO SCH (18:00)
[2016-09-23] MEDS ORDERED: FERROUS SULFATE 325 MG TABLET PO SCH (18:00)
--- NOTE | 2016-09-23 19:01 | L&D Flow Sheet ---
LD Flowsheet Datetime Report Generated by CPN: 09/23/2016 19:00 Datetime: 09/23/2016 12:31 NBP Sys/Lakisha/Mean (mmHg): 129 (QS system process) : 66 (QS system process) : 89 (QS system process) Pulse: 97 (QS system process) Temperature (F): 98.9 ([place], RNC) Temperature (C): 37.2 (QS system process) Temperature Route: Oral ([place], RNC) Pain Scale: 1 ([place], RNC) Pain Presence: Intermittent ([place], RNC) Pain Type: Cramping ([place], RNC) Pain Location: Abdomen ([place], RNC) Pain Relief Measures: Comfort Measures ([place], RNC) Datetime: 09/23/2016 12:12 NBP Sys/Lakisha/Mean (mmHg): 118 (QS system process) : 65 (QS system process) : 87 (QS system process) Pulse: 109 (QS system process) Datetime: 09/23/2016 11:57 NBP Sys/Lakisha/Mean (mmHg): 115 (QS system process) : 59 (QS system process) : 82 (QS system process) Pulse: 93 (QS system process) Respirations: 18 ([place], RNC) Pain Location: Abdomen ([place], RNC) Datetime: 09/23/2016 11:42 NBP Sys/Lakisha/Mean (mmHg): 131 (QS system process) : 60 (QS system process) : 86 (QS system process) Pulse: 121 (QS system process) Respirations: 17 ([place], RNC) Pain Scale: 1 ([place], RNC) Pain Presence: Intermittent ([place], RNC) Pain Type: Cramping ([place], RNC) Pain Location: Abdomen ([place], RNC) Pain Assessment Comments: states relief from burning and cramping with ice pack and po motrin ([place], RNC) Datetime: 09/23/2016 11:27 NBP Sys/Lakisha/Mean (mmHg): 125 (QS system process) : 57 (QS system process) : 81 (QS system process) Pulse: 113 (QS system process) Respirations: 17 ([place], RNC) Pain Scale: 3 ([place], RNC) Pain Presence: Intermittent ([place], RNC) Pain Type: Cramping ([place], RNC) Pain Location: Abdomen ([place], RNC) Pain Goal: 1 ([place], RNC) Pain Relief Measures: Pain Medication Given; Comfort Measures ([place], RNC) Datetime: 09/23/2016 11:13 NBP Sys/Lakisha/Mean (mmHg): 132 (QS system process) : 67 (QS system process) : 89 (QS system process) Pulse: 112 (QS system process) Pain Scale: 3 ([place], RNC) Pain Presence: Intermittent ([place], RNC) Pain Type: Cramping ([place], RNC) Pain Location: Abdomen ([place], RNC) Pain Goal: 1 ([place], RNC) Pain Relief Measures: Pain Medication Given; Comfort Measures ([place], RNC) Datetime: 09/23/2016 10:57 NBP Sys/Lakisha/Mean (mmHg): 128 (QS system process) : 60 (QS system process) : 86 (QS system process) Pulse: 118 (QS system process) Respirations: 18 ([place], RNC) Datetime: 09/23/2016 10:45 Respirations: 16 (Benita Terry, RN) Pain Scale: 0 (Benita Terry RN) Pain Presence: None/Denies (Benita Terry RN) Pain Type: N/A (Benita Harrsion, RN) Datetime: 09/23/2016 10:42 NBP Sys/Lakisha/Mean (mmHg): 140 (QS system process) : 71 (QS system process) : 95 (QS system process) Pulse: 117 (QS system process) Datetime: 09/23/2016 10:30 Respirations: 16 (Benita Harrison, RN) Pain Scale: 0 (Benita Harrison, RN) Pain Presence: None/Denies (Benita Harrison, RN) Pain Type: N/A (Benita Harrison, RN) Datetime: 09/23/2016 10:12 NBP Sys/Alkisha/Mean (mmHg): 130 (QS system process) : 63 (QS system process) : 81 (QS system process) Pulse: 129 (QS system process) Respirations: 17 ([facility]) Temperature (F): 98.9 ([facility]) Temperature (C): 37.2 (QS system process) Temperature Route: Oral ([facility]) Pain Scale: 2 ([facility]) Pain Presence: Constant ([facility]) Pain Type: Burning ([facility]) Pain Location: Perineum ([facility]) Pain Goal: 2 ([facility]) Pain Relief Measures: Comfort Measures (Annotations: ice pack to perineum) ([facility]) Pain Assessment Comments: resting comfortably no apparent distress noted ([facility]) Datetime: 09/23/2016 10:10 Stage of : Recovery (Benita Harrison, RN) Datetime: 09/23/2016 10:05 Stage 2 Comments: Delivery liveborn female placed on maternal abdomen, dried and stimulated with spontaneus cry and resp. See nursery record for assessment and intervention documentation (CRISTAL Faulkner) Datetime: 09/23/2016 10:04 Pulse: 136 (QS system process) SpO2 (%): 100 (QS system process) LaborFlag: Labor (QS system process) Datetime: 09/23/2016 10:03 SpO2 (%): 89 (QS system process) Pushing Position: Pushing with Contractions; Pushing Lithotomy (CRISTAL Faulkner) Pushing Progress: Descent with Pushing; with Pushing (CRISTAL Faulkner) Stage 2 Comments: Nursery staff at bedside for delivery (CRISTAL Faulkner) LaborFlag: Labor (QS system process) Datetime: 09/23/2016 10:00 Monitor Mode: External; Palpation ([place], RNC) Monitor Interventions for UA: [place] Adjusted (Iman Camp, RNC) Frequency (min): 2-3 ([place], RNC) Quality: Mild/Moderate ([place], RNC) Duration (sec): 50-90 ([place], RNC) Duration Criteria: Less than Two 120 Second Contractions ([place], RNC) Pattern: Normal: <= 5 Contractions in 10 Minutes ([place], RNC) Resting Tone (Palpate): Relaxed ([place], RNC) Contraction Comments: palpate mild to moderate ([place], RNC) Monitor Mode: External US; Auscultation ([place], RNC) Monitor Interventions for FHR: Ultrasound Adjusted ([place], RNC) FHR Baseline Rate : 130 ([place], RNC) FHR Baseline Changes: No Baseline Change ([place], RNC) Variability: Moderate 6-25 bpm ([place], RNC) Accelerations: 15X15 ([place], RNC) Decelerations: Early; Variable ([place], RNC) Comments: RN and provider remain at bedside adjusting monitor ([place], RNC) Datetime: 09/23/2016 09:59 Pulse: 137 (QS system process) SpO2 (%): 100 (QS system process) LaborFlag: Labor (QS system process) Datetime: 09/23/2016 09:49 Pulse: 156 (QS system process) SpO2 (%): 100 (QS system process) Pushing Position: Pushing with Contractions; Pushing Lithotomy (Benita Harrison, RN) LaborFlag: Labor (QS system process) Datetime: 09/23/2016 09:48 Provider Reviewed Strip: Yes (Benita Harrison, RN) Communication Comments: Dr Clancy at bedside (Benita Harrison, RN) Datetime: 09/23/2016 09:47 Contraction Comments: toco changed (Benitamargi Terry, RN) Datetime: 09/23/2016 09:45 Monitor Mode: Palpation ([place], RNC) Frequency (min): 3-4 ([place], RNC) Quality: Mild/Moderate ([place], RNC) Duration (sec): 50-70 ([place], RNC) Duration Criteria: Less than Two 120 Second Contractions ([place], RNC) Pattern: Normal: <= 5 Contractions in 10 Minutes ([place], RNC) Resting Tone (Palpate): Relaxed ([place], RNC) Monitor Mode: External US; Auscultation ([place], RNC) Monitor Interventions for FHR: Ultrasound Adjusted ([place], RNC) FHR Baseline Rate : 130 ([place], RNC) FHR Baseline Changes: No Baseline Change ([place], RNC) Variability: Moderate 6-25 bpm ([place], RNC) Decelerations: Early; Variable ([place], RNC) Comments: broken strtip noted secondary to maternal position and pushing, RN remains at bedside adjusting monitor ([place], RNC) Datetime: 09/23/2016 09:44 NBP Sys/Lakisha/Mean (mmHg): 132 (QS system process) : 60 (QS system process) : 87 (QS system process) Pulse: 138 (QS system process) Pulse: 139 (QS system process) SpO2 (%): 100 (QS system process) LaborFlag: Labor (QS system process) Datetime: 09/23/2016 09:38 Patient Position/Activity: Left Tilt (Benita Terry, RN) Datetime: 09/23/2016 09:35 Pulse: 142 (QS system process) SpO2 (%): 100 (QS system process) Communication Comments: Dr. clancy at bedside, order recieved to start pitocin at 2mu now (Benita Terry, RN) LaborFlag: Labor (QS system process) Datetime: 09/23/2016 09:30 Pulse: 124 (QS system process) SpO2 (%): 100 (QS system process) Monitor Mode: Palpation ([place], RNC) Frequency (min): 3-5 ([place], RNC) Quality: Mild/Moderate ([place], RNC) Duration (sec): 50-60 ([place], RNC) Resting Tone (Palpate): Relaxed ([place], RNC) Monitor Mode: External US; Auscultation ([place], RNC) FHR Baseline Changes: Unable to Determine ([place], RNC) Variability: Moderate 6-25 bpm ([place], RNC) Decelerations: Variable ([place], RNC) Comments: external u/s applied ([place], RNC) LaborFlag: Labor (QS system process) Datetime: 09/23/2016 09:25 Comments: fse dislodged during pt position change provider at bedside external u/s applied and adjusted ([place], RNC) Comments: FSE removed (Benita Terry RN) Datetime: 09/23/2016 09:15 Monitor Mode: External; Palpation ([place], RNC) Frequency (min): 4-5 ([place], RNC) Quality: Mild/Moderate ([place], RNC) Duration (sec): 50-60 ([place], RNC) Duration Criteria: Less than Two 120 Second Contractions ([place], RNC) Pattern: Normal: <= 5 Contractions in 10 Minutes ([place], RNC) Resting Tone (Palpate): Relaxed ([place], RNC) Contraction Comments: contractions mild to moderate with palpation, provider at bedside and aware ([place], RNC) Monitor Mode: Internal Scalp Electrode ([place], RNC) FHR Baseline Changes: Unable to Determine ([place], RNC) Accelerations: Prolonged ([place], RNC) Comments: fhr down to 90's over 6-7 mimutes gradual return to baseline with position change. Provider Hernandez at bedside encouraged not to push to decrease stress ([place], RNC) Datetime: 09/23/2016 09:11 Patient Position/Activity: Hands-Knees (Benita Terry, RN) Datetime: 09/23/2016 09:10 Monitor Interventions for FHR: FSE Applied (Benita Harrison, RN) Datetime: 09/23/2016 09:07 Patient Position/Activity: Left Lateral (Benita Harrison, RN) Datetime: 09/23/2016 09:03 Comments: KIwi pop off #2. (Iman Ravi RNLudmila) Teaching Comments: Dr Clancy at bedside OR team sent to set up room , discussed ineffective KIWI intervention and possible need to proceed to delivery. RN and supervisor facepiece line remain at bedside, fhr up to baseline, Dr Clancy gave pt option to continue pushing without further mechanial intervention and possible . Pt and family verbalize understanding and wish to continue pushing ([place], RNC) Datetime: 09/23/2016 09:02 Patient Position/Activity: Right Lateral (Benita Terry, RN) Datetime: 09/23/2016 09:00 Monitor Mode: External; Palpation ([place], RNC) Frequency (min): 2-3 ([place], RNC) Quality: Mild/Moderate ([place], RNC) Duration (sec): 60-90 ([place], RNC) Duration Criteria: Less than Two 120 Second Contractions ([place], RNC) Pattern: Normal: <= 5 Contractions in 10 Minutes ([place], RNC) Resting Tone (Palpate): Relaxed ([place], RNC) Monitor Mode: Internal Scalp Electrode ([place], RNC) FHR Baseline Rate : 130 ([place], RNC) FHR Baseline Changes: No Baseline Change ([place], RNC) Variability: Moderate 6-25 bpm ([place], RNC) Accelerations: 15X15 ([place], RNC) Decelerations: Variable; Prolonged ([place], RNC) Comments: persistent early and variable decels noted, side to side , O2 at 10 l rebreather continues provider and RN remain at bedside ([place], RNC) Comments: pop off x1 (Benita Terry RN) Datetime: 09/23/2016 08:59 NBP Sys/Lakisha/Mean (mmHg): 135 (QS system process) : 87 (QS system process) : 106 (QS system process) Pulse: 114 (QS system process) Patient Care Comments: kiwi start (Benita Terry RN) LaborFlag: Labor (QS system process) Datetime: 09/23/2016 08:57 Contraction Comments: RN remains at bedside palpating ctx (Benita Terry RN) Contraction Comments: IUPc removed (Benita Terry RN) Comments: FSE removed by Dr Clancy for placement of Kiwi (Benita Terry RN) Datetime: 09/23/2016 08:55 Vaginal Exam Comments: Dr Clancy at bedside presentation and station assessed. Strip reviewed pt and family (Benita Harrison, RN) Datetime: 09/23/2016 08:53 Actions for Decelerations: Side to Side (Benita Harrison, RN) Patient Position/Activity: Right Extreme (Benita Harrison, RN) Communication Comments: DR Clancy at bedside (Jono Chase, RN) Datetime: 09/23/2016 08:51 Patient Position/Activity: Left Extreme (Benita Harrison, RN) Datetime: 09/23/2016 08:45 Monitor Mode: Internal ([place], RNC) Frequency (min): 3-4 ([place], RNC) Duration (sec): 70-80 ([place], RNC) Pattern: Normal: <= 5 Contractions in 10 Minutes ([place], RNC) Resting Tone (Palpate): Relaxed ([place], RNC) Resting Tone IUP (mmHg): 20 ([place], RNC) Intensity IUP (mmHg): 55 ([place], RNC) Monitor Mode: Internal Scalp Electrode ([place], RNC) FHR Baseline Rate : 120 ([place], RNC) FHR Baseline Changes: No Baseline Change ([place], RNC) Variability: Moderate 6-25 bpm ([place], RNC) Decelerations: Variable ([place], RNC) Datetime: 09/23/2016 08:44 Pushing: Coached on Pushing; Urge to Push (Benita Harrison, RN) Pushing Position: Pushing with Contractions (Benita Harrison, RN) Pushing Progress: Descent with Pushing (Benita Harrison, RN) Datetime: 09/23/2016 08:36 Communication Comments: Dr Baltazar called, D[employer]ER answered phone- notified that C Hernandez CNM states she needs Dr Clancy at bedside now. (Jono Rena, RN) Datetime: 09/23/2016 08:34 Patient Position/Activity: Right Lateral (Benita Harrison, RN) Datetime: 09/23/2016 08:33 Dilatation (cm): 10.0 (Benita Terry, RN) Effacement (%): 100 (Benita Terry, RN) Station: 0 (Benita Terry, RN) Exam by: Moiz Hernandez CNM (Benita Terry, RN) Datetime: 09/23/2016 08:32 Patient Position/Activity: Trendelenburg (Benita Terry, RN) Communication Comments: LudmilaSana Mary CNDolly at bedside (Benita Terry, RN) Communication Comments: Dr Clancy notified of pt ve and fhr please come to unit now. (Jono Chase, RN) Datetime: 09/23/2016 08:31 Comments: 10L oxygen applied via non rebreather mask (Benita Terry, RN) Pitocin (milliunit): Pitocin Discontinued (Benita Terry, RN) Patient Position/Activity: Left Lateral (Benita Brownleemes, RN) Datetime: 09/23/2016 08:30 Monitor Mode: External; Internal ([place], RNC) Frequency (min): 5-6 ([place], RNC) Duration (sec): 60-100 ([place], RNC) Duration Criteria: Less than Two 120 Second Contractions ([place], RNC) Pattern: Normal: <= 5 Contractions in 10 Minutes ([place], RNC) Resting Tone (Palpate): Relaxed ([place], RNC) Resting Tone IUP (mmHg): 20 ([place], RNC) Intensity IUP (mmHg): 85 ([place], RNC) Monitor Mode: Internal Scalp Electrode ([place], RNC) FHR Baseline Rate : 145 ([place], RNC) FHR Baseline Changes: No Baseline Change ([place], RNC) Variability: Moderate 6-25 bpm ([place], RNC) Decelerations: Early; Variable ([place], RNC) Patient Position/Activity: Right Lateral (Benita Harrison, RN) Datetime: 09/23/2016 08:29 NBP Sys/Lakisha/Mean (mmHg): 115 (QS system process) : 67 (QS system process) : 86 (QS system process) Pulse: 101 (QS system process) LaborFlag: Labor (QS system process) Datetime: 09/23/2016 08:15 Monitor Mode: Internal ([place], RNC) Frequency (min): 5-7 ([place], RNC) Duration (sec): 90-100 ([place], RNC) Duration Criteria: Less than Two 120 Second Contractions ([place], RNC) Pattern: Normal: <= 5 Contractions in 10 Minutes ([place], RNC) Resting Tone (Palpate): Relaxed ([place], RNC) Resting Tone IUP (mmHg): 22 ([place], RNC) Intensity IUP (mmHg): 75 ([place], RNC) Monitor Mode: Internal Scalp Electrode ([place], RNC) FHR Baseline Rate : 140 ([place], RNC) FHR Baseline Changes: No Baseline Change ([place], RNC) Variability: Moderate 6-25 bpm ([place], RNC) Decelerations: Early ([place], RNC) Actions for Decelerations: Provider Reviewed Strip; Provider Notified ([place], RNC) Datetime: 09/23/2016 08:14 NBP Sys/Lakisha/Mean (mmHg): 115 (QS system process) : 67 (QS system process) : 85 (QS system process) Pulse: 92 (QS system process) LaborFlag: Labor (QS system process) Datetime: 09/23/2016 08:13 Temperature (F): 97.6 (Dora Broman, RN) Temperature (C): 36.4 (QS system process) LaborFlag: Labor (QS system process) Datetime: 09/23/2016 08:11 Patient Position/Activity: Left Lateral; Peanut Ball (Dora Broman, RN) Datetime: 09/23/2016 08:08 Antibiotics: Penicillin IV (Units) @ [id number] (Dora Broman, RN) Datetime: 09/23/2016 08:00 NBP Sys/Lakisha/Mean (mmHg): 103 (QS system process) : 59 (QS system process) : 77 (QS system process) Pulse: 79 (QS system process) Monitor Mode: Internal (Dora Broman, RN) Frequency (min): 3-4 (Dora Broman, RN) Quality: Mild/Moderate (Dora Broman, RN) Duration (sec): 90-150 (Dora Broman, RN) Pattern: Normal: <= 5 Contractions in 10 Minutes (Dora Broman, RN) Resting Tone (Palpate): Relaxed (Dora Broman, RN) Resting Tone IUP (mmHg): 15 (Dora Broman, RN) Monitor Mode: Internal Scalp Electrode (Dora Broman, RN) FHR Baseline Rate : 140 (Dora Broman, RN) Variability: Moderate 6-25 bpm (Dora Broman, RN) Accelerations: None (Dora Broman, RN) Decelerations: Early (Dora Broman, RN) Pitocin (milliunit): Pitocin Remains (milliunits) @ 4 (Dora Broman, RN) LaborFlag: Labor (QS system process) Datetime: 09/23/2016 07:45 Monitor Mode: Internal (Dora Broman, RN) Frequency (min): 2-5 (Dora Broman, RN) Quality: Mild/Moderate (Dora Broman, RN) Duration (sec): 90-130 (Dora Broman, RN) Duration Criteria: Less than Two 120 Second Contractions (Dora Broman, RN) Pattern: Normal: <= 5 Contractions in 10 Minutes (Dora Broman, RN) Resting Tone (Palpate): Relaxed (Dora Broman, RN) Resting Tone IUP (mmHg): 10 (Dora Broman, RN) Monitor Mode: Internal Scalp Electrode (Dora Broman, RN) FHR Baseline Rate : 140 (Dora Broman, RN) Variability: Moderate 6-25 bpm (Dora Broman, RN) Accelerations: None (Dora Broman, RN) Decelerations: Early (Dora Broman, RN) Pitocin (milliunit): Pitocin Remains (milliunits) @ 4 (Dora Broman, RN) Datetime: 09/23/2016 07:44 NBP Sys/Lakisha/Mean (mmHg): 114 (QS system process) : 59 (QS system process) : 81 (QS system process) Pulse: 85 (QS system process) LaborFlag: Labor (QS system process) Datetime: 09/23/2016 07:31 Pitocin (milliunit): Pitocin Increased to (milliunits) @ 4 (Dora Broman, RN) Patient Position/Activity: Right Lateral; Peanut Ball (Dora Broman, RN) Datetime: 09/23/2016 07:30 Monitor Mode: Internal (Dora Broman, RN) Frequency (min): 3-4 (Dora Broman, RN) Quality: Mild/Moderate (Dora Broman, RN) Duration (sec): 90-120 (Dora Broman, RN) Pattern: Normal: <= 5 Contractions in 10 Minutes (Dora Broman, RN) Resting Tone (Palpate): Relaxed (Dora Broman, RN) Resting Tone IUP (mmHg): 20 (Dora Broman, RN) Contraction Comments: MVU = 150 (Dora Broman, RN) Monitor Mode: Internal Scalp Electrode (Dora Broman, RN) FHR Baseline Rate : 135 (Dora Broman, RN) Variability: Moderate 6-25 bpm (Dora Broman, RN) Accelerations: None (Dora Broman, RN) Decelerations: Early (Dora Broman, RN) Pitocin (milliunit): Pitocin Remains (milliunits) @ 2 (Dora Broman, RN) Datetime: 09/23/2016 07:29 NBP Sys/Lakisha/Mean (mmHg): 117 (QS system process) : 62 (QS system process) : 84 (QS system process) Pulse: 85 (QS system process) LaborFlag: Labor (QS system process) Datetime: 09/23/2016 07:20 Contraction Comments: MVU = 145 (Dora Broman, RN) Datetime: 09/23/2016 07:16 Level of Consciousness: Fully Conscious (Dora Broman, RN) DTR's/Clonus: DTRs 2+; No Clonus (Dora Broman, RN) Headache: Denies (Dora Broman, RN) Breath Sounds, Left: Clear and Equal (Dora Broman, RN) Breath Sounds, Right: Clear and Equal (Dora Broman, RN) Nausea/Vomiting: Denies (Dora Broman, RN) RUQ Epigastric Pain: Denies (Dora Broman, RN) Pitocin (milliunit): Pitocin Remains (milliunits) @ (Annotations: 2) (Dora Broman, RN) Datetime: 09/23/2016 07:15 Monitor Mode: Internal (Dora Broman, RN) Frequency (min): 3-4 (Dora Broman, RN) Quality: Mild/Moderate (Dora Broman, RN) Duration (sec): 90-120 (Dora Broman, RN) Pattern: Normal: <= 5 Contractions in 10 Minutes (Dora Broman, RN) Resting Tone (Palpate): Relaxed (Dora Broman, RN) Resting Tone IUP (mmHg): 20 (Dora Broman, RN) Monitor Mode: Internal Scalp Electrode (Dora Broman, RN) Variability: Moderate 6-25 bpm (Dora Broman, RN) Accelerations: 15X15 (Dora Broman, RN) Decelerations: Early (Dora Broman, RN) Comments: unable to determine baseline (Dora Broman, RN) Pitocin (milliunit): Pitocin Remains (milliunits) @ 2 (Dora Broman, RN) Datetime: 09/23/2016 07:14 NBP Sys/Lakisha/Mean (mmHg): 114 (QS system process) : 69 (QS system process) : 85 (QS system process) Pulse: 102 (QS system process) LaborFlag: Labor (QS system process) Datetime: 09/23/2016 07:10 Communication Comments: report to oncoming shift, care relinquished to RN Harrison and RN Dora Broman (Liliam Ballard, RN) Datetime: 09/23/2016 07:08 Dilatation (cm): 4.0 (Liliam Ballard RN) Effacement (%): 100 (Liliam Ballard RN) Station: -1 (Liliam Ballard RN) Exam by: LOIDA Ballard (Liliam Ballard RN) Vaginal Exam Comments: unchanged (Liliam Ballard RN) I/O Interventions: Duarte Cath Inserted (Liliam Ballard RN) Datetime: 09/23/2016 07:00 Monitor Mode: Internal; Palpation (Liliam Ballard RN) Frequency (min): 2-6 (Liliam Ballard RN) Duration (sec): 70-90 (Liliam Ballard RN) Resting Tone IUP (mmHg): 10 (Liliam Ballard RN) Contraction Comments: intensity: 25-60 (Liliam Ballard RN) Contraction Comments: mih=292 (Liliam Ballard RN) Monitor Mode: Internal Scalp Electrode (Liliam Ballard RN) FHR Baseline Rate : 140 (Liliam Ballard RN) Variability: Minimal - Undetectable to <=5 bpm (Liliam Ballard RN) Decelerations: Variable (Liliam Ballard RN) Pitocin (milliunit): Pitocin Remains (milliunits) @ (Annotations: 2) (Liliam Ballard RN)
[2016-09-23] MEDS ORDERED: FAMOTIDINE 20 MG TABLET PO SCH (22:00)
[2016-09-24] MEDS: IBUPROFEN 800 MG TABLET PO SCH ×3 (05:02→21:28)
--- NOTE | 2016-09-24 06:01 | L&D Current Admission ---
Current Admit Datetime Report Generated by CPN: 09/24/2016 06:00 ADMISSION INFORMATION Current Admit Date/Time: 09/23/2016 01:50 (09/23/2016 02:16:Liliam Ballard RN) Reason for Admission: Onset of Labor; Other (09/23/2016 02:16:Liliam Ballard RN) Other Reason for Admission: patient having bleeding (09/23/2016 02:16:Liliam Ballard RN) Chief Complaint: Contractions; Vaginal Bleeding (09/23/2016 02:16:Liliam Ballard RN) Medications During : Vitamin; Acetaminophen (Tylenol) (09/23/2016 02:16:Liliam Ballard RN) EGA per Dates: 39.3 (09/23/2016 02:16:QS system process) EGA per US: 40.0 (09/23/2016 02:16:QS system process) Method of Arrival: Wheelchair (09/23/2016 02:16:Liliam Ballard RN) Admitted From: Home (09/23/2016 02:16:Liliam Ballard RN) Reason for Induction: Not Applicable (09/23/2016 02:16:Liliam Ballard RN) Records Available: Yes (09/23/2016 02:16:Liliam Ballard RN) General Admission Information: Reviewed (09/23/2016 02:16:Liliam Ballard RN) General Admission Reviewed By: LOIDA Ballard (09/23/2016 02:16:Liliam Ballard RN) BELONGINGS/ADVANCED DIRECTIVES Other Belongings: see valuable list (09/23/2016 02:16:Liliam Ballard RN) Disposition of Belongings: Kept with Patient (09/23/2016 02:16:Liliam Ballard RN) Advance Direct for Healthcare: No, and Wants No Information (09/23/2016 02:16:Liliam Ballard RN) Durable Power of Pipe Roller: No (09/23/2016 02:16:Liliam Ballard RN) Living Will: No (09/23/2016 02:16:Liliam Ballard RN) Organ Donor: Yes (09/23/2016 02:16:Liliam Ballard RN) Pt Rights Information Given: Yes (09/23/2016 02:16:Liliam Ballard RN) Pt Understands Pt Rights: Yes (09/23/2016 02:16:Liliam Ballard RN) Patient Rights Comments: given in patient access (09/23/2016 02:16:Liliam Ballard RN) DOMESTIC VIOLANCE SCREENING Dom Viol Threatened/Hurt: No (09/23/2016 02:16:Liliam Ballard RN) Hx of Abuse/Neglect past 2yrs: No (09/23/2016 02:16:Liliam Ballard RN) Feel Unsafe Going Home: No (09/23/2016 02:16:Liliam Ballard RN) Addt'l Observ Indicating Abuse: No (09/23/2016 02:16:Liliam Ballard RN) Reason Unable to Complete Screen: No Opportunity to Talk Privately (09/23/2016 02:16:Liliam Ballard RN) Considered Personal Harm/Suicide: No (09/23/2016 02:16:Liliam Ballard RN) NUTRITIONAL/FUNCTIONAL SCREENING Problem with Appetite >5 Days: No (09/23/2016 02:16:Liliam Ballard RN) Chew/Swallow Difficulties: No (09/23/2016 02:16:Liliam Ballard RN) Inappropriate Wt Gain/Loss: No (09/23/2016 02:16:Liliam Ballard RN) Presence Skin Breakdown/Ulcer: No (09/23/2016 02:16:Liliam Ballard RN) Special Diet: No (09/23/2016 02:16:Liliam Ballard RN) Pt Requests Branch Specialist Visit: No (09/23/2016 02:16:Liliam Ballard RN) Hx of Any of the Following?: N/A (09/23/2016 02:16:Liliam Ballard RN) New Diagnosis of: N/A (09/23/2016 02:16:Liliam Ballard RN) Requires Assist w/Ambulation: No (09/23/2016 02:16:Liliam Ballard RN) Uses Assist Device to Ambulate: No (09/23/2016 02:16:Liliam Ballard RN) Pt Requires Help w/ADL's: No (09/23/2016 02:16:Liliam Ballard RN)
--- NOTE | 2016-09-24 06:01 | L&D General Admission ---
General Admit Datetime Report Generated by CPN: 09/24/2016 06:00 INFORMATION Patient Age: 20 (09/02/2016 15:22:QS system process) EDC: 09/27/2016 00:00 (09/21/2016 20:44:Comfort Rios RN) EDC per Ultrasound: 09/23/2016 00:00 (09/21/2016 20:44:Jeni Jin RN) : 1 (09/21/2016 20:44:Jeni Jin RN) Para: 0 (09/21/2016 20:44:Jeni Jin RN) Term: 0 (09/21/2016 20:44:Soledad Brooks RN) : 0 (09/21/2016 20:44:Soledad Brooks RN) Spontaneous Abortions: 0 (09/21/2016 20:44:Soledad Brooks RN) Induced Abortions: 0 (09/21/2016 20:44:Soledad Brooks RN) Livin (09/21/2016 20:44:Soledad Brooks RN) Cesareans: 0 (09/21/2016 20:44:Soledad Brooks RN) VBACs: 0 (09/21/2016 20:44:Soledad Brooks RN) Ectopic: 0 (09/21/2016 20:44:Soledad Brooks RN) Multiple Births: 0 (09/21/2016 20:44:Soledad Brooks RN) Baby, Number in Womb: 1 (09/21/2016 20:44:Jacqui Sr RN) CARE Primary Photogrammetric Stereo Compiler: [facility] (09/21/2016 20:44:Jacqui Sr RN) Month of 1st Visit: February (09/21/2016 20:44:Jacqui Sr RN) Adequate Care: Yes (09/21/2016 20:44:Jacqui Sr RN) Prepregnancy Weight (lb): 190 (09/21/2016 20:44:CRISTAL Faulkner) Prepregnancy Weight (kg): 86.4 (09/21/2016 20:44:QS system process) Height (in): 65 (09/21/2016 22:10:QS system process) ALLERGIES Medication Allergy: No (09/21/2016 20:44:Jacqui Sr RN) Medication Allergies: No Known Allergies (09/22/2016) (09/22/2016 21:14:QS system process) Latex Allergy: No Latex Allergies (09/21/2016 20:44:Jacqui rS RN) COMMUNICATION Primary Language: [place] (09/21/2016 20:44:Jacqui Sr RN) Medical Tx Preferred Language: [place] (09/21/2016 20:44:Jacqui Sr RN) Communication Barrier(s): None (09/21/2016 20:44:Jacqui Sr RN) DEMOGRAPHICS Address: [place] [address] (09/02/2016 15:22:QS system process) Zipcode: [address] (09/02/2016 15:22:QS system process) Home (09/02/2016 15:22:QS system process) Work (09/02/2016 15:22:QS system process) SSN: [id number] (09/02/2016 15:22:QS system process) Next of Kin Name: WILBER HOLMAN (09/02/2016 15:22:QS system process) Next of Kin (09/02/2016 15:22:QS system process) Next of Kin Relationship: MO (09/02/2016 15:22:QS system process) Date of : 1995 (09/02/2016 15:22:QS system process) Marital Status: Single (09/02/2016 15:22:QS system process) Sex: Female (09/02/2016 15:22:QS system process) Occupation: Homemaker (09/21/2016 20:44:CRISTAL Faulkner) Race: (09/02/2016 15:22:QS system process) Ethnicity: Non- or (09/02/2016 15:22:QS system process) Denominational: Rastafarian (09/02/2016 15:22:QS system process) Education: 12 (09/21/2016 20:44:CRISTAL Faulkner) FOB Involved: Yes (09/21/2016 20:44:CRISTAL Faulkner) DRUG AND ALCOHOL USE Alcohol: No (09/21/2016 20:44:Jacqui Sr RN) Cigarettes: Never Smoker. [id number] (09/21/2016 20:44:Jacqui Sr RN) Marijuana: No (09/21/2016 20:44:Jacqui Sr RN) Cocaine: No (09/21/2016 20:44:Jacqui Sr RN) Other Illicit Drugs: No (09/21/2016 20:44:Jacqui Sr RN) VACCINE HISTORY Influenza Vaccine: No (09/21/2016 20:44:Jacqui Sr RN) Contract Recruiter: [facility] [facility] (09/21/2016 20:44:Jacqui Sr RN) Feeding Preference: Breast (09/21/2016 20:44:Jacqui Sr RN) Benefit of Breast Feed Discussed: Yes (09/21/2016 20:44:Jacqui Sr RN) Circumcision: N/A (09/21/2016 20:44:Jacqui Sr RN) Classes Attended: Yes (09/21/2016 20:44:Jacqui Sr RN) Tubal Ligation: No (09/21/2016 20:44:Jacqui Ledgerwood, RN) Consent: N/A (09/21/2016 20:44:Jacqui Sr RN) Pain Management Plans: Natural (09/21/2016 20:44:Jacqui Sr RN) Plans for Labor and Delivery: None (09/21/2016 20:44:Jacqui Sr RN) Support Person: Wilber (09/21/2016 20:44:Jacqui Sr RN) Support Person Relationship: Mother (09/21/2016 20:44:Jacqui Sr RN) Cultural/Spritual Practice: No (09/21/2016 20:44:Jacqui Sr RN) Spir/Cult Dietary Needs: No (09/21/2016 20:44:Jacqui Sr RN) LIVING SITUATION/DISCHARGE PLAN Living Arrangements: Apartment (09/21/2016 20:44:Jacqui Sr RN) Adequate Access to:: Electric; Heat; Refrigeration; Plumbing/Running water; Phone; Transportation (09/21/2016 20:44:Jacqui Sr RN) WIC Program: Yes (09/21/2016 20:44:Jacqui Sr RN) Discharge Obstetrics Gyn Physician Person: Mother (09/21/2016 20:44:Jacqui Sr RN) Person to Help after Discharge: Mother (09/21/2016 20:44:Jacqui Sr RN) Currently Using Commun Resources: Yes (09/21/2016 20:44:Jacqui Sr RN) Specify Current Resource Used: WIC (09/21/2016 20:44:Jacqui Sr RN) Outside Agency/Welder Helper: No (09/21/2016 20:44:Jacqui Sr RN) Car Seat for Discharge: Yes (09/21/2016 20:44:Jacqui Sr RN) Adoption Requested: No (09/21/2016 20:44:Jacqui Sr RN) Pt Contact w/infant Post : N/A (09/21/2016 20:44:Jacqui Sr RN) ADOLESCENT SCREEN Age of Father of Baby: 25 (09/21/2016 20:44:Jacqui Sr RN) LABS Blood Type: O Positive (09/21/2016 20:44:Liliam Ballard RN) Hemoglobin: 11.9 L (09/23/2016 02:13:QS system process) Hematocrit: 37.4 (09/23/2016 02:13:QS system process) MCV: 72 L (09/23/2016 02:13:QS system process) Group Beta Strep: positive (09/21/2016 20:44:Liliam Ballard RN) Gonorrhea: Negative (09/21/2016 20:44:Liliam Ballard RN) Chlamydia: Negative (09/21/2016 20:44:Liliam Ballard RN) RPR/VDRL: Nonreactive (09/21/2016 20:44:Liliam Ballard RN) HIV Results: negative (09/21/2016 20:44:Liliam Ballard RN) Hepatitis B: Negative (09/21/2016 20:44:Liliam Ballard RN) Rubella: Immune (09/21/2016 20:44:Liliam Ballard RN) Varicella: Non Susceptible (09/21/2016 20:44:Liliam Ballard RN) OB/PREVIOUS HISTORY Previous Procedures: None (09/21/2016 20:44:Jacqui Sr RN) Current Procedures: Ultrasound (09/21/2016 20:44:Jacqui Sr RN) History of Previous : No (09/21/2016 20:44:Jacqui Sr RN) History of Gestational Diabetes: No (09/21/2016 20:44:Jacqui Sr RN) History of PIH: No (09/21/2016 20:44:Jacqui Sr RN) History of Incompetent Cervix: No (09/21/2016 20:44:Jacqui Sr RN) History of Placenta Previa/Abrup: No (09/21/2016 20:44:Jacqui Sr RN) History of Macrosomia: No (09/21/2016 20:44:Jacqui Sr RN) History of IUGR: No (09/21/2016 20:44:Jacqui Sr RN) History of Hemorrhage: No (09/21/2016 20:44:Jacqui Sr RN) History of Loss/Stillborn: No (09/21/2016 20:44:Jacqui Sr RN) History of : No (09/21/2016 20:44:Jacqui Sr RN) History of D (Rh) Sensitization: No (09/21/2016 20:44:Jacqui Sr RN) History Recurrent Loss/Stillborn: No (09/21/2016 20:44:Jacqui Sr RN) History Depression/PP Depression: No (09/21/2016 20:44:Jacqui Sr RN) History of Uterine Anomaly/EDGAR: No (09/21/2016 20:44:Jacqui Sr RN) History of Infertility: No (09/21/2016 20:44:Jacqui Sr RN) History of ART Treatment: No (09/21/2016 20:44:Jacqui Sr RN) History of EDGAR: No (09/21/2016 20:44:Jacqui Sr RN) Comments Obstetrical History: g1-current (09/21/2016 20:44:Liliam Ballard RN) MEDICAL HISTORY Med Hx Diabetes: No (09/21/2016 20:44:Jacqui Sr RN) Med Hx Hypertension: No (09/21/2016 20:44:Jacqui Sr RN) Med Hx Heart Disease: No (09/21/2016 20:44:Jacqui Sr RN) Med Hx Autoimmune Disorder: No (09/21/2016 20:44:Jacqui Sr RN) Med Hx Kidney Disease/UTI: No (09/21/2016 20:44:Jacqui Sr RN) Med Hx Neurologic/Epilepsy: No (09/21/2016 20:44:Jacqui Sr RN) Med Hx Psychiatric Disorders: No (09/21/2016 20:44:Jacqui Sr RN) Med Hx Hepatitis/Liver Disease: No (09/21/2016 20:44:Jacqui Sr RN) Med Hx Varicosities/Phlebitis: No (09/21/2016 20:44:Jacqui Sr RN) Med Hx Thyroid Dysfunction: No (09/21/2016 20:44:Jacqui Sr RN) Med Hx Trauma/Violence: No (09/21/2016 20:44:Jacqui Sr RN) Med Hx Blood Transfusion: No (09/21/2016 20:44:Jacqui Sr RN) Med Hx Pulmonary (Asthma,TB): No (09/21/2016 20:44:Jacqui Sr RN) Med Hx Breast: No (09/21/2016 20:44:Jacqui Sr RN) Med Hx LOADMASTER Surgery: No (09/21/2016 20:44:Jacqui Sr RN) Med Hx Hospitalization/Surgery: Yes (09/21/2016 20:44:Jacqui Sr RN) Med Hx Anesthetic Complications: No (09/21/2016 20:44:Jacqui Sr RN) Med Hx Abnormal Pap Smear: No (09/21/2016 20:44:Jacqui Sr RN) Other Medical Diseases: No (09/21/2016 20:44:Jacqui Sr RN) Med Hx Significant Family Hx: No (09/21/2016 20:44:Jacqui Sr RN) Details of Med/Surg Hx: R arm surgery 2005, obesity (09/21/2016 20:44:Liliam Ballard RN) INFECTIOUS HISTORY Inf Hx Gonorrhea: No (09/21/2016 20:44:Jacqui Sr RN) Inf Hx Chlamydia: No (09/21/2016 20:44:Jacqui Sr RN) Inf Hx Syphilis: No (09/21/2016 20:44:Jacqui Sr RN) Inf Hx HIV/AIDS: No (09/21/2016 20:44:Jacqui Sr RN) Inf Hx Human Papilloma Virus: No (09/21/2016 20:44:Jacqui Sr RN) Inf Hx Pt/Partner Genital Herpes: No (09/21/2016 20:44:Jacqui Sr RN) Inf Hx Tuberculosis/Exposure: No (09/21/2016 20:44:Jacqui Sr RN) Inf Hx Hepatitis B,C: No (09/21/2016 20:44:Jacqui Sr RN) Inf Hx Rash or Viral Illness: No (09/21/2016 20:44:Jacqui Sr RN) GENETIC HISTORY Gen Hx Age >=35 at MAXI: No (09/21/2016 20:44:Jacqui Sr RN) Gen Hx Thalassemia: No (09/21/2016 20:44:Jacqui Sr RN) Gen Hx Congenital Heart Defect: No (09/21/2016 20:44:Jacqui Sr RN) Gen Hx Neural Tube Defect: No (09/21/2016 20:44:Jacqui Sr RN) Gen Hx Down's Syndrome: No (09/21/2016 20:44:Jacqui Sr RN) Gen Hx Sean-Sachs: No (09/21/2016 20:44:Jacqui Sr RN) Gen Hx Shellie: No (09/21/2016 20:44:Jacqui Sr RN) Gen Hx Familial Dysautonomia: No (09/21/2016 20:44:Jacqui Sr RN) Gen Hx Sickle Cell Disease/Trait: No (09/21/2016 20:44:Jacqui Sr RN) Gen Hx Hemophilia/Blood Disorder: No (09/21/2016 20:44:Jacqui Sr RN) Gen Hx Muscular Dystrophy: No (09/21/2016 20:44:Jacqui Sr RN) Gen Hx Cystic Fibrosis: No (09/21/2016 20:44:Jacqui Sr RN) Gen Hx Huntingtons Chorea: No (09/21/2016 20:44:Jacqui Sr RN) Gen Hx Mental Retardation/Autism: No (09/21/2016 20:44:Jacqui Sr RN) Gen Hx Tested for Fragile X: No (09/21/2016 20:44:Jacqui Sr RN) Gen Hx Other Inher/Chromosomal: No (09/21/2016 20:44:Jacqui Sr RN) Gen Hx Maternal Metabolic DO: No (09/21/2016 20:44:Jacqui Sr RN) Gen Hx Pt Father or FOB Defect: No (09/21/2016 20:44:Jacqui Sr RN) Gen Hx Other Genetic History: No (09/21/2016 20:44:Jacqui Sr RN) Gen Hx Drugs/Meds since LMP: No (09/21/2016 20:44:Jacqui Sr RN)
--- NOTE | 2016-09-24 06:16 | L&D Care Plan ---
LD CARE PLANS Datetime Report Generated by CPN: 09/24/2016 06:15 Datetime: 09/23/2016 02:01 Pain State: Risk For (Liliam Ballard RN) Related To: Labor and Delivery Process; Surgical Procedure; Complication(s) of ; Treatment and Procedures; Post (Liliam Ballard RN) Goal(s): Patients Pain will be Assessed and Managed; Patient will Verbalize Adequate Relief of Pain or the Ability to [place] with Current Pain (Liliam Ballard RN) Interventions: Assess Pain Severity on Scale of 0 (None) to 5 (Severe); Assess Type, Location and Intensity of Pain Each Time Client Reports Discomfort and Notify Provider if Unusal Pain Develops; Encourage Proper Breathing and Relaxation Techniques; Offer Alternatives Such as Repositioning, Calm Environment, Massages, Diversional Activities, Ice Pack, Splinting, and Ambulation; Administer Analgesics as Ordered; Assist with Epidural Placement as Appropriate; Evaluate Therapeutic Effectiveness of Medication and Treatments (Liliam Ballard RN) Outcome: Patient will Report Absence or Relief of Pain Consistent with Established Pain Goal (Liliam Ballard RN) Status: Ongoing (Liliam Ballard RN) Outcome: Patient will have a Decrease in Signs and Symptoms of Discomfort (Liliam Ballard RN) Status: Ongoing (Liliam Ballard RN) Outcome: Pain will be Controlled During Procedures (Liliam Ballard RN) Status: Ongoing (Liliam Ballard RN) Anxiety State: Risk For (Liliam Ballard RN) Related To: Labor and Delivery Process; Surgical Procedure; Fear of Unknown; Medical Interventions (Liliam Ballard RN) Goal(s): Patient will have Decreased Anxiety and be able to Function at Acceptable Levels (Liliam Ballard RN) Interventions: Assess Verbal and Nonverbal Behavioral Indicators of Anxiety; Assist Patient to Identify and Verbalize Symptoms of Anxiety; Identify and Demonstrate Techniques to Control Anxiety; Assist Patient with Coping Mechanisms to Manage Anxiety; Provide Theraputic Touch for the Patient; Explain to Patient, Using a Calm Reassuring Approach and Nonmedical Terms, All Activities, Procedures, and Concerns; Instruct Patient and Family about Post Discharge Care, Limitations, Symptoms to Report and Resources Available (Liliam Ballard RN) Outcome: Patient will Identify, Verbalize and Demonstrate Techniques to Control Anxiety (Liliam Ballard RN) Status: Ongoing (Liliam Ballard RN) Outcome: Patient's Posture, Facial Expressions, Gestures and Activity Level will Reflect Decreased Anxiety (Liliam Ballard RN) Status: Ongoing (Liliam Ballard RN) Outcome: Patient will Verbalize a Sense of Control and/or Acceptance of the Situation (Liliam Ballard RN) Status: Ongoing (Liliam Ballard RN) Outcome: Patient will Identify and Utilize Support Person (Liliam Ballard RN) Status: Ongoing (Liliam Ballard RN) Knowledge Deficit State: Risk For (Liliam Ballard RN) Related To: Labor and Delivery Process; Surgical Procedures; Treatment and Procedures; Feeding and Infant Care (Liliam Ballard RN) Goal(s): Patient will Accurately Verbalize Understanding of Plan of Care and Treatment; Patient and Family will Accurately Verbalize Understanding of the Disease Process (Liliam Ballard RN) Interventions: Assess Motivation and Willingness of Patient/Family to Learn; Assess Preferred Learning Mode: One to One Instruction, Reading, Videos, Group Discussion or Demonstration; Assess Barriers to Learning: Pain, Emotional State, Language Barrier, Cognitive Impairment, Visual or Hearing Deficits; Assess Patient and Family Knowledge of Disease Process, Medications and Treatment; Discuss Therapy and/or Treatment Options, Describe Rationale Behind Management, Therapy and Treatment Recommendations; Instruct Patient and Family on Signs and Symptoms to Report; Instruct Patient and Family on Medication Effects and Side Effects; Provide Appropriate and Timely Education Using Multiple Techniques; Provide Patient and Family with Support Group Information and Resources; Give Clear and Thorough Explanations and Demonstrations (Liliam Ballard RN) Outcome: Patient and Family will Verbalize Understanding of Condition, Treatment and Signs and Symptoms to Report (Liliam Ballard RN) Status: Ongoing (Liliam Balalrd RN) Outcome: Patient will Identify Perceived Learning Needs and Express Motivation to Learn (Liliam Ballard RN) Status: Ongoing (Liliam Ballard RN) Outcome: Patient will Verbalize Understanding of Desired Content, and/or Performs Desired Skill Prior to Discharge (Liliam Ballard RN) Status: Ongoing (Liliam Ballard RN) Infection State: Risk For (Liliam Ballard RN) Related To: Surgical Procedures; Prolonged Labor or Induction; Premature/Prolonged Rupture of Membranes; Invasive Procedures (Liliam Ballard RN) Goal(s): The Patient will be Free of Infection, Vital Signs Stable and Lab Work within Normal Parameters (Liliam Ballard RN) Interventions: Instruct and Reinforce Proper Handwashing, Hygiene, and Care Techniques to Patient and Family; Monitor Vital Signs; Monitor Patient for the Following Signs of Infection: Fever, Abdominal Tenderness, Unusual Discharge; Monitor Aminiotic Fluid, Urine and Lochia for Color and Odor; Observe Wounds, Incisions and Invasive Line Sites for Redness, Drainage and Edema; Assess IV Sites per Hospital Policy; Monitor Lab and Test Results and Notify Provider of Abnormal Findings; Assess Nutritional Status and Promote Good Nutrition (Liliam Ballard RN) Outcome: Patient will Remain Free of Infection (Liliam Ballard RN) Status: Ongoing (Liliam Ballard RN) Outcome: Infection will be Recognized Early to Allow for Prompt Treatment (Liliam Ballard RN) Status: Ongoing (Liliam Ballard RN) Outcome: Patient will have Vital Signs Within Expected Range (Liliam Ballard RN) Status: Ongoing (Liliam Ballard RN) Fluid Volume State: Risk For (Liliam Ballard RN) Related To: Surgical Procedures; Prolonged Labor or Induction; Hemorrhage; Anesthesia (Liliam Ballard RN) Goal(s): Patient will Achieve and Maintain a Balanced Fluid Volume Status; Hemodynamically Stable (Liliam Ballard RN) Interventions: Monitor Vital Signs; Auscultate Breath Sounds; Monitor Patient for Skin Turgor, Mucous Membranes, Dry Skin, Weakness, Headaches and Confusion; Provide Oral Fluids as Ordered; Initiate and Maintain Intravenous Fluids as Ordered; Monitor Intake and Output as Indicated Per Patient Status; Accurately Measure Blood Loss; Monitor Lab and Test Results as Obtained and Notify Provider of Abnormal Findings; Monitor Patient's Weight (Liliam Ballard RN) Outcome: Patient will have Clear Lung Sounds (Liliam Ballard RN) Status: Ongoing (Liliam Ballard RN) Outcome: Patient will have Vital Signs within Expected Range (Liliam Ballard RN) Status: Ongoing (Liliam Ballard RN) Outcome: Urine Output will be within Expected Range (Liliam Ballard RN) Status: Ongoing (Liliam Ballard RN) Outcome: Patient will have Minimal Generalized or Upper Extremity Edema (Liliam Ballard RN) Status: Ongoing (Liliam Ballard RN) Injury State: Risk For (Liliam Ballard RN) Related To: Labor and Delivery Process; Anesthesia; Risk to Status; Uteroplacental Perfusion; Hemorrhage, Placenta Previa and or Placental Abruption (Liliam Ballard RN) Goal(s): Patient will Remain Free from Injury (Liliam Ballard RN) Interventions: Monitoring as per Hospital Protocol; Assess Neurological Status; Perform Risk Assessment of Patients with Induction and ; Perform Fall Risk Assessment and Prevention per Hospital Protocol; Perform DVT Risk Assessment and Prophylaxis per Hospital Protocol; Ensure that Oxygen, Suction, and Resuscitation Medications and Equipment are Readily Available; Confirm Patient ID Prior to Procedure(s) and Medication Administration per Hospital Policy (Liliam Ballard RN) Outcome: Successful Fall Risk Prevention (Liliam Ballard RN) Status: Ongoing (Liliam Ballard RN) Outcome: Patient will Deliver without Adverse [place] (Liliam Ballard RN) Status: Ongoing (Liliam Ballard RN) Outcome: Patient's Neurological Status will Remain Stable (Liliam Ballard RN) Status: Ongoing (Liliam Ballard RN) Impaired Skin Integrity State: Risk For (Liliam Ballard RN) Related To: Vaginal Delivery; Surgical Procedures; Invasive Procedures (Liliam Ballard RN) Goal(s): Patient will Maintain Optimal Skin Integrity, Free of Breakdown, Injury or Infection (Liliam Ballard RN) Interventions: Complete Screening for Pressure Ulcer Risk and Initiate Protocol per Hospital Policy; Monitor Site of Skin Impairment for Color Changes, Redness, Swelling, Warmth, Pain or Other Signs of Infection; Encourage and Assist with Position Changes; Monitor Patient's Mobility Status; Provide Adequate Nutrition and Fluids; Teach Patient Appropriate Hygienic Care; Teach Patient/Family Skin Care Management (Liliam Ballard RN) Outcome: Patient will not have Evidence of Injury Such as Skin Breakdown, Scrapes, Cuts, or Bruising (Liliam Ballard RN) Status: Ongoing (Liliam Ballard RN) Outcome: Patient will Report Any Altered Sensation or Pain at Site of Skin Impairment (Liliam Ballard RN) Status: Ongoing (Liliam Ballard RN) Outcome: Patients Incisions and Wounds will be without Signs or Symptoms of Infection (Liliam Ballard, LOIDA) Status: Ongoing (Liliam Ballard RN) Outcome: Patient will Demonstrate Understanding of Plan to Heal Skin and Prevent Reinjury and Verbalize Risk Factors (Liliam Ballard RN) Status: Ongoing (Liliam Ballard RN) Parenting Impaired State: Risk For (Liliam Ballard RN) Related To: Apprehension Related to [place] Care (Liliam Ballard RN) Goal(s): Parents will Demonstrate Progressive Parenting Behaviors (Liliam Ballard RN) Interventions: Assess for Adequacy of Support Systems; Observe and Encourage Patient/Family Attachment and Bonding Activities and Provide Feedback; Assess Patient/Family Understanding of Infant's Condition and Provide Accurate Information About Condition, Treatment and Prognosis; Assess for Patient/Family Behaviors that May Indicate Lack of Attachment; Provide a Safe Non-judgmental Environment for Patient/Family to Discuss Concerns; Promote Patient/Family Cohesiveness by Encouraging Discussion and Problem Solving; Assembly Instructions Writer Referral as Indicated (Liliam Ballard RN) Outcome: Patient/Family will Discuss Their Fears and the Possibility of Difficulties with Parenting (Liliam Ballard RN) Status: Ongoing (Liliam Ballard RN) Outcome: Patient/Family will Exhibit Appropriate Bonding Behaviors with Infant (Liliam Ballard RN) Status: Ongoing (Liliam Ballard RN) Outcome: Patient/Family will Verbalize Positive Feelings and Demonstrate Affection and Caring Toward Infant (Liliam Ballard RN) Status: Ongoing (Liliam Ballard RN) Nutrition State: Risk For (Liliam Ballard RN) Related To: ; (Liliam Ballard RN) Goal(s): Patient will have an Intake of Nutrients Sufficient to Meet Metabolic Needs (Liliam Ballard RN) Interventions: Nutritional Screening and Assessment per Hospital Policy; Consult [employer] for Further Assessment and Recommendations Regarding Food Preferences and Nutritional Support; Allow Patient to Plan and Order Diet when Possible; Monitor Laboratory Values That Indicate Nutritional Well-being; Consult [place] for Nutritional Support Regarding Requirements; Document Actual Weight Initially and Weekly (Do Not Estimate); Encourage Patient Participation in Maintaining a Food Log as Indicated; Educate Patient on the Importance of Maintaining an Adequate Caloric Intake (Liliam Ballard RN) Outcome: Patient will Receive Adequate Calories and Fluid Volume to Meet Metabolic Needs (Liliam Ballard RN) Status: Ongoing (Liliam Ballard RN) Outcome: Patient will Select Foods or Meals that Support Adequate Nutrition (Liliam Ballard RN) Status: Ongoing (Liliam Ballard RN) Grieving State: Not Applicable (Liliam Ballard RN) Additional Care Plan State: Risk For (Liliam Ballard RN) Nursing Diagnosis or r/t: (Liliam Ballard RN) Goal(s): - every 2-3 hours, and on demand -no pacifiers -no bottles unless medically necessary -rooming in (Liliam Ballard RN) Interventions: -rooming in -consultant [employer]. vice president [employer] (ex ) -nurse assistance (Liliam Ballard RN) Outcome Status: Ongoing (Liliam Ballard RN)
[2016-09-24 07:54] LABS: HEMATOCRIT 30.4 % (36.0-47.0); HGB HCT DIFFERENCE -1.3; MEAN CORPUSCULAR HEMOGLOBIN 23.4 pg (27.0-33.4); MEAN CORPUSCULAR HGB CONC 31.9 g/dL (32.0-36.0); MEAN CORPUSCULAR VOLUME 73 fl (80-97); RED BLOOD COUNT 4.15 10^6/uL (3.72-5.28); RED CELL DISTRIBUTION WIDTH 18.9 % (11.5-14.0); WHITE BLOOD COUNT 12.8 10^3/uL (4.0-10.5)
[2016-09-24 08:43] LABS: HEMOGLOBIN 9.7 g/dL (12.0-15.5)
[2016-09-24] MEDS: SENNOSIDES/DOCUSATE 8.6-50 MG 1 EACH TABLET PO SCH (09:57)
[2016-09-24] MEDS: PRENATAL VITAMIN W-O CA NO5/FE FUMARATE/FA CAPSULE PO SCH (09:57)
--- NOTE | 2016-09-24 11:16 | PDOC PROGRESS REPORT ---
Subjective-OB Subjective: Post Delivery Day: 20 year old. Denies any needs at this time Doing well, hsb holding baby, no c/o, voiding, , scant bleeding Physical Exam (OB) Vital Signs: Temp Pulse Resp BP Pulse Ox 98.0 F 83 16 123/61 100 09/24/16 08:44 09/24/16 08:44 09/24/16 08:44 09/24/16 08:44 09/24/16 08:44 Intake & Output 09/23/16 09/24/16 09/25/16 06:59 06:59 06:59 Weight 104.25 kg - Lochia Lochia Amount: Scant < 10 ml Lochia Color: Rubra/Red - Abdomen Description: Tender, Soft Hernia Present: No Fundal Description: Firm, Midline Fundal Height: u/u - u/2 Objective-Diagnostic Laboratory: 09/24/16 07:46 09/24/16 07:46 WBC 12.8 H RBC 4.15 Hgb 9.7 L D Hct 30.4 L MCV 73 L MCH 23.4 L MCHC 31.9 L RDW 18.9 H Plt Count 142 L Assessment and Plan(PN) - Assessment and Plan (1) Anemia Qualifiers: Anemia type: iron deficiency Is this a current diagnosis for this admission?: Yes (2) Normal vaginal delivery Is this a current diagnosis for this admission?: Yes - Time Spent with Patient Time with patient: Less than 15 minutes Medications reviewed and adjusted accordingly: Yes - Disposition Anticipated Discharge: Home Within: within 24 hours
[2016-09-25] MEDS: IBUPROFEN 800 MG TABLET PO SCH ×2 (06:02→13:15)
[2016-09-25] MEDS: PRENATAL VITAMIN W-O CA NO5/FE FUMARATE/FA CAPSULE PO SCH (10:19)
[2016-09-25] MEDS: SENNOSIDES/DOCUSATE 8.6-50 MG 1 EACH TABLET PO SCH (10:20)
[2016-09-25 10:52] VITALS: BP 129/66
--- NOTE | 2016-09-25 12:35 | PDOC DISCHARGE SUMMARY ---
Final Diagnosis Discharge Date: 09/25/16 - Final Diagnosis (1) Anemia Is this a current diagnosis for this admission?: Yes (2) Normal vaginal delivery Is this a current diagnosis for this admission?: Yes Discharge Data - Discharge Medication Home Medications: Vit/Iron Fumarate/FA [ Tablet] 1 each PO DAILY 09/21/16 Ferrous Sulfate [Feosol 325 mg Tablet] 325 mg PO BID #90 tab 09/25/16 Ibuprofen [Motrin 800 mg Tablet] 800 mg PO Q8 #90 tablet 09/25/16 Reason(s) for Admission: Onset of Labor Procedures: None Intrapartum Procedure(s): Spontaneous Vaginal Delivery Complication(s): Laceration-Vaginal Laceration-Degree: 1st - Diagnosis Test Laboratory: Temp Pulse Resp BP Pulse Ox 98.3 F 88 16 129/66 H 100 09/25/16 10:50 09/25/16 10:50 09/25/16 10:50 09/25/16 10:50 09/25/16 10:50 09/22/16 09/23/16 09/24/16 20:20 02:13 07:46 RBC 5.18 4.15 Hgb 11.9 L 9.7 L D Hct 37.4 30.4 L Urine Opiates Screen NEGATIVE - Discharge information/Instructions Discharge Activity: Activity As Tolerated, No Lifting Over 10 Pounds, Pelvic Rest, No tub bath Discharge Diet: Regular Disposition: HOME, SELF-CARE Follow up with: [facility] in: 4
== END 2016-09-25 13:46 | disposition home or self-care (01) | DRG 775 ==
LOC: LC 20:09 → LR 09-23 01:56 → 2S 09-23 12:51
PROVIDERS: ADMIT Specialist; ATTEND Specialist
PROC: 10E0XZZ Delivery of Products of Conception, External Approach (ICD-10-PCS; principal; 2016-09-23)
PROC: 0HQ9XZZ Repair Perineum Skin, External Approach (ICD-10-PCS; 2016-09-23)
PROC: 10H07YZ Insertion of Other Device into Products of Conception, Via Natural or Artificial Opening (ICD-10-PCS; 2016-09-23)
PROC: 4A1H7CZ Monitoring of Products of Conception, Cardiac Rate, Via Natural or Artificial Opening (ICD-10-PCS; 2016-09-23)
DX: O76 Abnormality in fetal heart rate and rhythm complicating labor and delivery (principal); O69.81X0 Labor and delivery complicated by cord around neck, without compression, not applicable or unspecified; O99.214 Obesity complicating childbirth; O99.824 Streptococcus B carrier state complicating childbirth; O77.0 Labor and delivery complicated by meconium in amniotic fluid; O99.02 Anemia complicating childbirth; D50.9 Iron deficiency anemia, unspecified; E66.9 Obesity, unspecified; Z3A.39 39 weeks gestation of pregnancy; Z37.0 Single live birth; Z68.38 Body mass index [BMI] 38.0-38.9, adult
CPT/HCPCS: 36415; 80307; 81005; 85025; 85027; 86592; 86850; 86900; 86901; 88307; 94760; J2540; J2590; J3490

== ENCOUNTER 2020-04-11 14:10 | Emergency (ER) | payer BC, MEDICAID ==
[2020-04-11] MEDS ORDERED: ACETAMINOPHEN 325 MG TABLET PO ONE (15:28)
--- NOTE | 2020-04-11 15:32 | ER Document Report ---
ED Medical Screen (RME) - General Chief Complaint: Lower Abdominal Pain Stated Complaint: LOW ABDOMINAL PAIN Time Seen by Provider: 04/11/20 15:27 Primary Care Provider: ARNIE KRISHNAMURTHY MD [Primary Care Provider] - Follow up as needed Mode of Arrival: Ambulatory Information source: Patient Notes: HPI; 24-year-old female presents to the emergency room complaining of left lower pelvic pain for the past 3 days. States she started with some generalized abdominal pain yesterday. Denies any nausea, vomiting, no fevers. Does complain of some dysuria. Not taking any medications for symptoms. PE: Alert and oriented x3. Mild distress noted. Lungs: Clear to auscultation without rales, rhonchi, wheezes. Heart tachycardic, without murmurs, rubs, gallops. Unable to do full abdominal exam in triage. I have greeted and performed a rapid initial assessment of this patient. A comprehensive ED assessment and evaluation of the patient, analysis of test results and completion of the medical decision making process will be conducted by additional ED providers. I have specifically instructed the patient or family members with the patient to immediately return to any nursing staff should anything change in the patient's condition or with their chief complaint. TRAVEL OUTSIDE OF THE [place] IN LAST 30 DAYS: No - Related Data Allergies/Adverse Reactions: No Known Allergies Allergy (Verified 09/22/16 21:14) Past Medical History Pulmonary Medical History: Reports: Hx Asthma, Hx Bronchitis Past Surgical History: Reports: Hx Orthopedic Surgery - Immunizations Immunizations up to date: Yes Hx Diphtheria, Pertussis, Tetanus Vaccination: Yes Physical Exam - Vital signs Vitals: Temp Pulse Resp BP Pulse Ox 100.0 F 109 H 18 129/71 H 100 04/11/20 14:45 04/11/20 14:45 04/11/20 14:45 04/11/20 14:45 04/11/20 14:45 Course - Vital Signs Vital signs: Temp Pulse Resp BP Pulse Ox 100.0 F 109 H 18 129/71 H 100 04/11/20 14:45 04/11/20 14:45 04/11/20 14:45 04/11/20 14:45 04/11/20 14:45 Doctor's Discharge - Discharge Referrals: ARNIE KRISHNAMURTHY MD [Primary Care Provider] - Follow up as needed
[2020-04-11 16:04] LABS: HEMATOCRIT 36.1 % (36.0-47.0); HEMOGLOBIN 11.3 g/dL (12.0-15.5); MEAN CORPUSCULAR HEMOGLOBIN 21.5 pg (27.0-33.4); MEAN CORPUSCULAR HGB CONC 31.2 g/dL (32.0-36.0); MEAN CORPUSCULAR VOLUME 69 fl (80-97); PLATELET COUNT 251 10^3/uL (150-450); RED BLOOD COUNT 5.24 10^6/uL (3.72-5.28); RED CELL DISTRIBUTION WIDTH 17.3 % (11.5-14.0); WHITE BLOOD COUNT 20.1 10^3/uL (4.0-10.5)
[2020-04-11 16:05] LABS: APPEARANCE,URINE CLOUDY; BILIRUBIN,URINE NEGATIVE (NEGATIVE); COLOR,URINE AMBER; GLUCOSE, URINE NEGATIVE (NEGATIVE); KETONES,URINE TRACE mg/dL (NEGATIVE); LEUKOCYTE ESTERASE,URINE LARGE (NEGATIVE); NITRITE,URINE NEGATIVE (NEGATIVE); PROTEIN,URINE 100 mg/dL (NEGATIVE); URINE SPECIFIC GRAVITY 1.028
[2020-04-11 16:25] LABS: ABSOLUTE LYMPHOCYTES# (MANUAL) 1.2 10^3/uL (0.5-4.7); ABSOLUTE MONOCYTES # (MANUAL) 0.6 10^3/uL (0.1-1.4); BASOPHILS % (MANUAL) 0 % (0-2); EOSINOPHILS % (MANUAL) 1 % (0-6); LYMPHOCYTES % (MANUAL) 6 % (13-45); MONOCYTES % (MANUAL) 3 % (3-13); SEGMENTED NEUTROPHILS % (MAN) 90 % (42-78); TOTAL CELLS COUNTED 100
[2020-04-11 16:27] LABS: OVALOCYTES SLIGHT
[2020-04-11 16:28] LABS: ANISOCYTOSIS 1+; PLATELET COMMENT ADEQUATE; POIKILOCYTOSIS SLIGHT
[2020-04-11 16:31] LABS: ALBUMIN 4.3 g/dL (3.5-5.0); ALKALINE PHOSPHATASE 84 U/L (38-126); ANION GAP 15 (5-19); ASPARTATE AMINO TRANSFERASE 18 U/L (14-36); BILIRUBIN,DIRECT 0.4 mg/dL (0.0-0.4); BILIRUBIN,TOTAL 0.9 mg/dL (0.2-1.3); BLOOD UREA NITROGEN 7 mg/dL (7-20); CALCIUM 9.7 mg/dL (8.4-10.2); CARBON DIOXIDE 22 mmol/L (22-30); CHLORIDE 105 mmol/L (98-107); GLUCOSE 92 mg/dL (75-110); POTASSIUM 4.5 mmol/L (3.6-5.0); TOTAL PROTEIN 7.6 g/dL (6.3-8.2)
[2020-04-11] MEDS ORDERED: RINGERS SOLUTION,LACTATED 1,000 ML IV ONE (16:41)
[2020-04-11] MEDS ORDERED: CEFTRIAXONE 1 GM/D5W RTU 1 GM/50 ML RTUPB IV ONE (16:41)
--- NOTE | 2020-04-11 18:28 | RADIOLOGY REPORT (SQ) ---
EXAM DESCRIPTION: U/S NON OB PEL TV W/DOPPLER IMAGES COMPLETED DATE/TIME: 04/11/2020 5:09 pm REASON FOR STUDY: pelvic pain. COMPARISON: None. TECHNIQUE: Dynamic and static grayscale images acquired of the pelvis via transvaginal approach and recorded on PACS. Additional selected color Doppler and spectral images recorded. LIMITATIONS: None. FINDINGS: UTERUS: Contour normal. No mass. ENDOMETRIAL STRIPE: No focal or generalized thickening. No masses. CERVIX: No nabothian cysts. RIGHT OVARY AND DOPPLER: Normal size. Multiple peripheral follicles with increased central stroma. N o worrisome masses. Normal arterial vascular flow without evidence for torsion. LEFT OVARY AND DOPPLER: Normal size. Multiple peripheral follicles with increased central stroma. No worrisome masses. Normal arterial vascular flow without evidence for torsion. FREE FLUID: None noted. OTHER: No other significant finding. MEASUREMENTS: UTERUS: 7.5 x 4.9 x 3.5 cm ENDOMETRIAL STRIPE: 4 mm RIGHT OVARY: 3.2 x 2.3 x 2.2 cm. LEFT OVARY: 3.3 x 2.8 x 2.2 cm. IMPRESSION: Normal sonographic appearance of the uterus. Multiple peripheral follicles with increas ed central stroma bilateral ovaries which can be seen with polycystic ovarian syndrome. Clinical cor relation is recommended. No sonographic evidence of torsion. TECHNICAL DOCUMENTATION: JOB ID: [id number] [employer]- All Rights Reserved Rev-11/14 Reading location - IP/workstation name: [email or web address]
[2020-04-12] MEDS ORDERED: ONDANSETRON HCL INJ/PF 4 MG/2 ML SDV IV ONE (00:42)
[2020-04-12] MEDS ORDERED: MORPHINE SULFATE 10 MG/ML INJ IV ONE (00:42)
[2020-04-12] MEDS ORDERED: NORMAL SALINE 1000 ML 1,000 ML IV ONE (00:43)
--- NOTE | 2020-04-12 00:44 | ER Document Report ---
ED GI/ - General Chief Complaint: Abdominal Pain Stated Complaint: LOW ABDOMINAL PAIN Time Seen by Provider: 04/11/20 15:27 Primary Care Provider: ARNIE KRISHNAMURTHY MD [ACTIVE STAFF] - Follow up as needed Mode of Arrival: Ambulatory Notes: Patient is a 24-year-old female who comes emergency department for chief complaint of lower abdominal pain for the past 3 days. She states that she sta rted having severe worsening pain yesterday to where it became painful to walk, symptoms continued today so she came in for evaluation. She denies particular flank pain, nausea, vomiting, fever. She does have some mild discomfort with urination, small amount of vaginal discharge, small amount of vaginal bleeding. She states she has had irregular bleeding since she started control recently. She reports history of orthopedic surgeries, denies abdominal surgeries, denies any daily prescribed occasions otherwise. She is sexually active with her significant other. TRAVEL OUTSIDE OF THE [place] IN LAST 30 DAYS: No - Related Data Allergies/Adverse Reactions: No Known Allergies Allergy (Verified 09/22/16 21:14) Past Medical History - General Information source: Patient - Social History Smoking Status: Unknown if Ever Smoked Chew tobacco use (# tins/day): No Frequency of alcohol use: None Drug Abuse: None Lives with: Family Family History: None Patient has homicidal ideation: No Pulmonary Medical History: Reports: Hx Asthma, Hx Bronchitis Past Surgical History: Reports: Hx Orthopedic Surgery - Immunizations Immunizations up to date: Yes Hx Diphtheria, Pertussis, Tetanus Vaccination: Yes Review of Systems - Review of Systems Constitutional: No symptoms reported EENT: No symptoms reported Cardiovascular: No symptoms reported Respiratory: No symptoms reported Gastrointestinal: See HPI Genitourinary: See HPI Female Genitourinary: See HPI Musculoskeletal: No symptoms reported Skin: No symptoms reported Hematologic/Lymphatic: No symptoms reported Neurological/Psychological: No symptoms reported Physical Exam - Vital signs Vitals: Temp Pulse Resp BP Pulse Ox 100.0 F 109 H 18 129/71 H 100 04/11/20 14:45 04/11/20 14:45 04/11/20 14:45 04/11/20 14:45 04/11/20 14:45 - Notes Notes: GENERAL: Alert, interacts well. No acute distress. HEAD: Normocephalic, atraumatic. EYES: Pupils equal, round, and reactive to light. Extraocular movements intact. ENT: Oral mucosa moist, tongue midline. Oropharynx unremarkable. Airway patent. NECK: Full range of motion. Supple. Trachea midline. No lymphadenopathy. LUNGS: Clear to auscultation bilaterally, no wheezes, rales, or rhonchi. No respiratory distress. Non-tender chest wall. HEART: Regular rate and rhythm. No murmur ABDOMEN: Generalized tenderness in the mid to lower abdomen, patient has some wincing but no overt guarding, no rigidity, bowel sounds present throughout. No specific McBurney's point tenderness. GENITOURINARY: There is some scant vaginal discharge but no overt cervical motion tenderness, no bleeding, no lesions, no concerning findings otherwise. Exam performed with Sonam MARISCAL at bedside. EXTREMITIES: Moves all 4 extremities spontaneously. No edema, normal radial and dorsalis pedis pulses bilaterally. No cyanosis. BACK: no cervical, thoracic, lumbar midline tenderness. No saddle anesthesia, normal distal neurovascular exam. Moves all extremities in full range of motion. NEUROLOGICAL: Alert and oriented x3. Normal speech. Cranial nerves II through XII grossly intact. Strength 5/5 in all extremities. PSYCH: Normal affect, normal mood. SKIN: Warm, dry, normal turgor. No rashes or lesions noted. Course - Re-evaluation Re-evalutation: Patient has generalized mid to lower abdominal tenderness and she is notably uncomfortable with this palpation. However there is no severe tenderness or guarding. There is also no focal area of tenderness, patient ambulates and performs position changes without difficulty, there is no noted peritonitis. Vital signs unremarkable. CBC shows leukocytosis at 20,000 with elevation of neutrophils but no bandemia. Chemistry nonspecific, negative. Urine appears to show urinary tract infection, she has received Rocephin from triage. Based on her pelvic tenderness I recommended a pelvic exam, this shows some discharge but no cervical motion tenderness or concerning findings otherwise. No current bleeding. Uncertain whether this is PID versus other acute abdominal process especially with generalized lower abdominal tenderness and leukocytosis. Ultrasound from triage shows possible PCOS but no tubo-ovarian abscess or concerning findings otherwise. I discussed cysts with patient, she will follow- up with [facility] routinely but I do not believe this is the cause of her symptoms. CT showing normal appendix, possible enteritis versus peritonitis. Gonorrhea is not positive. I reevaluated the patient. She has no focal tenderness and she does not have severe generalized tenderness either. I feel her evaluation is most consistent with PID at this point, patient is unremarkable vital signs, patient is asked twice now she can be discharged. I discussed details with patient and mother after patient consented, I discussed treatment for PID, follow-up instructions, and strict return precautions in regards to potential sepsis versus acute abdomen. Very low suspicion of this at this time based on her very well appearance and reassuring reexamination. Patient and mother state understanding and agreement. - Vital Signs Vital signs: Temp Pulse Resp BP Pulse Ox 98.3 F 89 18 135/71 H 100 04/12/20 05:52 04/12/20 05:52 04/12/20 05:52 04/12/20 05:52 04/12/20 05:52 - Laboratory Result Diagrams: 04/11/20 15:46 04/11/20 15:46 Laboratory results interpreted by me: 04/11/20 04/11/20 04/12/20 15:46 15:46 02:41 WBC 20.1 H Hgb 11.3 L MCV 69 L MCH 21.5 L MCHC 31.2 L RDW 17.3 H Seg Neuts % (Manual) 90 H Lymphocytes % (Manual) 6 L Abs Neuts (Manual) 18.1 H Urine Protein 100 H Urine Ketones TRACE H Urine Blood SMALL H Urine Urobilinogen 2.0 H Ur Leukocyte Esterase LARGE H Urine Ascorbic Acid 40 H N.gonorrhoeae DNA (PCR) DETECTED H Discharge - Discharge Clinical Impression: Lower abdominal pain, PID (acute pelvic inflammatory disease) Condition: Stable Disposition: HOME, SELF-CARE Additional Instructions: Your evaluation is consistent with pelvic inflammatory disease, you have tested positive for gonorrhea. Please take the antibiotics as prescribed to completion, avoid sexual intercourse for 10 days, any partner also needs to be treated. Follow-up with primary care. Come back if you worsen including severe worsening pain, vomiting, fever, or any other concerning or worsening symptoms. Prescriptions: Promethazine HCl [Phenergan 25 mg Tablet] 25 mg PO Q6H PRN #15 tablet PRN Reason: Doxycycline Hyclate [Vibramycin 100 mg Tablet] 100 mg PO BID 10 Days #20 tablet Forms: Return to Work Referrals: ARNIE KRISHNAMURTHY MD [ACTIVE STAFF] - Follow up as needed
[2020-04-12] MEDS ORDERED: CEFTRIAXONE 1 GM/D5W RTU 1 GM/50 ML RTUPB IV ONE (01:36)
[2020-04-12 02:58] LABS: RBCS (WET MOUNT) FEW RBCS SEEN; T.VAGINALIS (WET MOUNT) NO TRICHOMONAS SEEN; WBCS (WET MOUNT) 2+ WBCS SEEN; YEAST (WET MOUNT) NO YEAST SEEN
[2020-04-12 04:27] LABS: CHLAM PCR NOT DETECTED (NOT DETECT)
--- NOTE | 2020-04-12 04:37 | RADIOLOGY REPORT (SQ) ---
EXAM DESCRIPTION: CT ABDOMEN PELVIS WITH IV CONTRAST COMPLETED DATE/TME: 04/12/2020 02:44 CLINICAL HISTORY: 24 years, Female, lower abd pain, leukocytosis. HCG NEG COMPARISON: None. TECHNIQUE: [id number] Images stored on PACS. All CT scanners at this facility use dose modulation, iterative reconstruction, and/or weight based dosing when appropriate to reduce radiation dose to as low as reasonably achievable (ALARA). [facility]: Dose Right [facility]: CareDose [facility]: Dose Right [facility]: Teradose 4D [facility]: Navera LIMITATIONS: None. FINDINGS: Visualized lung bases are unremarkable. Osseous structures are grossly intact. Fatty infiltrative change to the liver. The spleen, adrenal glands, pancreas, kidneys are unremarkable. The gallbladder is present. There is no gross evidence for bowel obstruction. Abundant stool in the colon. Normal appendix. No free air or free fluid. Suspected follicular change to the ovaries bilaterally. There are a few thick-walled loops of small bowel in the lower mid abdomen with some minor surrounding peritoneal inflammation. Findings may reflect nonspecific enteritis/peritonitis. No small bowel dilatation. IMPRESSION: Minor inflammatory changes in the lower abdominal mesentery with a few thick-walled loops of small bowel. Findings may reflect nonspecific enteritis/peritonitis. TECHNICAL DOCUMENTATION: Quality ID # [id number]: Final reports with documentation of one or more dose reduction techniques (e.g., Automated exposure control, adjustment of the mA and/or kV according to patient size, use of iterative reconstruction technique) copyright 2010 [employer]- All Rights Reserved
[2020-04-12] MEDS ORDERED: HYDROCODONE/ACETAMINOPHEN 5-325 MG (6 TAB/ER DISP) PO PRN (05:06)
[2020-04-12 05:54] VITALS: BP 135/71
== END 2020-04-12 05:52 | disposition home or self-care (01) ==
LOC: ER 14:10
DX: N73.0 Acute parametritis and pelvic cellulitis (principal); R10.30 Lower abdominal pain, unspecified
CPT/HCPCS: 99285; 96361; 96375; 96365; 36415; 87040; 87086; 87210; 84703; 85025; 80053; 81001; 87491; 87591; 76830; 93976; 74177; J2270; J2405; J7030; J0696